=== PATIENT | male | born 1990 | race Caucasian/White ===

== ENCOUNTER 2018-04-10 09:00 | Outpatient (RCR) | payer MEDICARE, SELFPAY ==
--- NOTE | 2018-04-10 09:00 | BH.COMM ---
Communication Note - Communication with Client Communication Note: Met with this patient to complete intial paperwork. No significant changes since pre-admission screening. Denies any suicidal ideations, plan, or intent. Due to weather several group members had to cancel therefore not enough to run groups today. Pt to meet with individual therapist.
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
--- NOTE | 2018-04-10 14:38 | BH.MTP ---
Master Treatment Plan - Patient Information Program Physician:: Darius Oviedo Primary Therapist:: Triston Michel - Psychiatric Diagnoses Psychiatric Diagnoses:: Persistent depressive disorder; generalized anxiety disorder; PTSD; Borderline personality disorder; alcohol abuse Diagnosis Code(s):: F 34.1 - Estimated LOS Estimated LOS (in weeks):: 6 Problem/Goal #1 - Problem/Goal #1 Stated Goal:: Client will reduce depressive symptoms, suicidal thoughts, and anhedonia due to persistent depressive disorder. Description of Barriers: Client acknowledges that his recent move, current job, and lack of social supports contribute to his worsening depressive symptoms. Client recognizes he engages in avoidant behaviors and his negative thoughts reinforce isolation at times. Client recently stopped using marijuana and started drinking in the evenings as a method to manage night terrors and help client sleep. Client acknowledges his drinking is developing into a problem and was receptive to gaining resources to help him deal with this. Client has a history of self-harm and impulsive behaviors. Client shared he has not addressed or worked through his trauma which may impact client's ability to manage symptoms. Lastly, due to client's complex trauma history and long-term negative core beliefs of self, client may struggle with challenging and reframing negative thoughts. Functional Impact: Client is a 27-year-old male who was referred to [facility] by his outpatient therapist due to worsening depression and fleeting suicidal ideation. Client presents with a history of bipolar, PTSD, AMERICO, and Borderline Personality disorder. Client reports his symptoms have become worse over the past several months due to recent move and lack of social supports. Per client's report, he has had multiple previous psychiatric admissions for suicidal ideation and suicide attempts with his most recent hospitalization being two years ago. Client states having chronic suicidal ideation which intensify when client is stressed. Client currently denies any active suicidal ideation, plan, and intent. Client also has a history of self-injurious behaviors of cutting which he reports doing weekly. Client currently endorses lack of motivation, anhedonia, self-loathing, lack of energy, erratic sleep, nightmares, hopelessness, and ruminations. Client reports avoidant behaviors and has been isolating. Client?s symptoms impact his ability to function at his baseline and are impacting his overall quality of life. Goal Relevant Strengths/Supports: Client presents as kind, intelligent, and willing to engage in his mental health treatment. Client has been through several adverse experiences in his life and he demonstrates resilience. Client is caring towards people and shared my friends say I'm easy to talk to. Client shared he loves animals and has three cats that he devotedly cares for. Client reports he has had close relationships in the past and identified his mother as a support. Client's new job has provided client with increased financial support and helped client develop a new skillset. Client enjoys reading, music, and yoga. Client is connected with outpatient counseling and psychiatry which is a protective factor. - Objectives Objective #1 Stated Objective: Client will identify and replace 2-3 negative thinking patterns that reinforce isolation, suicidal ideation, and negative self-talk. Interventions: Through groups and individual therapy, client will be provided with education on cognitive distortions, mistaken beliefs, and identifying and combating negative self-talk. Therapist will assist client recognizing triggers for increased suicidal and depressive thought patterns. Therapist will help client explore connection between thoughts, feelings, and actions and help client reframe depressive thought patterns. Therapist will help client gain awareness of why client has developed negative thoughts and core beliefs of self. Discharge Criteria: Client will have accomplished this goal when client can identify and replace at least 2 negative thinking patterns with more realistic, positive statements. Target Date: 05/22/18 Review Date: 05/10/18 Status: open Objective #2 Stated Objective: Client will increase behavioral activation by engaging in at least one additional activity per week to reduce depressive symptoms as shown by reduced DSM-5 cross-cutting scores for depression. Interventions: Therapist will help client explore social connection opportunities, and as well as activities that promote accomplishment, enjoyment, and closeness. Therapist will provide education on maintenance cycles for depression and help client learn how to break unhealthy maintenance cycles using thought challenging and opposite action. Therapist will help client identify barriers that have prevented from engaging in more activities and create solutions to these barriers. Therapist will help client set SMART goals. Discharge Criteria: Client will have achieved this goal when client can report increased behavioral activation by participating in one extracurricular activity per week and shows reduced DSM-5 cross-cutting scores for depression. Target Date: 05/22/18 Review Date: 05/10/18 Status: open Problem/Goal #2 - Problem/Goal #2 Stated Goal:: Client will reduce overall frequency, intensity, and duration of anxiety while increasing ability to function on a daily basis. Description of Barriers: Client acknowledges that his recent move, current job, and lack of social supports contribute to his worsening depressive symptoms. Client recognizes he engages in avoidant behaviors and his negative thoughts reinforce isolation at times. Client recently stopped using marijuana and started drinking in the evenings as a method to manage night terrors and help client sleep. Client acknowledges his drinking is developing into a problem and was receptive to gaining resources to help him deal with this. Client has a history of self-harm and impulsive behaviors. Client shared he has not addressed or worked through his trauma which may impact client's ability to manage symptoms. Lastly, due to client's complex trauma history and long-term negative core beliefs of self, client may struggle with challenging and reframing negative thoughts. Functional Impact: Client is a 27-year-old male who was referred to [facility] by his outpatient therapist due to worsening depression and fleeting suicidal ideation. Client presents with a history of bipolar, PTSD, AMERICO, and Borderline Personality disorder. Client reports his symptoms have become worse over the past several months due to recent move and lack of social supports. Per client's report, he has had multiple previous psychiatric admissions for suicidal ideation and suicide attempts with his most recent hospitalization being two years ago. Client states having chronic suicidal ideation which intensify when client is stressed. Client currently denies any active suicidal ideation, plan, and intent. Client also has a history of self-injurious behaviors of cutting which he reports doing weekly. Client currently endorses lack of motivation, anhedonia, self-loathing, lack of energy, erratic sleep, nightmares, hopelessness, and ruminations. Client reports avoidant behaviors and has been isolating. Client?s symptoms impact his ability to function at his baseline and are impacting his overall quality of life. Goal Relevant Strengths/Supports: Client presents as kind, intelligent, and willing to engage in his mental health treatment. Client has been through several adverse experiences in his life and he demonstrates resilience. Client is caring towards people and shared my friends say I'm easy to talk to. Client shared he loves animals and has three cats that he devotedly cares for. Client reports he has had close relationships in the past and identified his mother as a support. Client's new job has provided client with increased financial support and helped client develop a new skillset. Client enjoys reading, music, and yoga. Client is connected with outpatient counseling and psychiatry which is a protective factor. - Objectives Objective #1 Stated Objective: Client will identify 2-3 anxiety/PTSD triggers and 2 coping skills to use when feeling anxious to manage anxiety as shown by reduced DSM-5 scores for anxiety. Interventions: Through group and individual sessions, therapist will help client increase awareness of warning signs and triggers as well as cognitive distortions that reinforce anxiety and PTSD symptoms. Therapist will teach client strategies to replace and challenge cognitive distortions. Therapist will utilize grounding, mindfulness, and CBT-based strategies to help client learn how to more effectively manage and cope with triggers and anxiety. Therapist will teach client calming/relaxation skills and help client connect ways to apply skills to daily life Discharge Criteria: Client will have accomplished this goal when client can identify at least 2 triggers and 2 coping skills to manage symptoms. Client's DSM-5 score for anxiety will also have decreased. Target Date: 05/22/18 Review Date: 05/10/18 Status: open Objective #2 Stated Objective: Client will be able to explain 4-5 common stress reactions and symptoms related to trauma. Interventions: Therapist will provide education on trauma and explain impact trauma can have on development. Will help client explore symptoms and helpful coping skills to improve emotional regulation and distress tolerance. Therapist will help client get connected with additional trauma-focused services, should client agree. Discharge Criteria: Client will have met this objective when can identify at least 4 common stress reactions to trauma and consistently applying distress tolerance skills. Target Date: 05/22/18 Review Date: 05/10/18 Status: open Problem/Goal #3 - Problem/Goal #3 Stated Goal:: Client will increase coping skills to more effectively manage impulsiveness and relationships. Description of Barriers: Client acknowledges that his recent move, current job, and lack of social supports contribute to his worsening depressive symptoms. Client recognizes he engages in avoidant behaviors and his negative thoughts reinforce isolation at times. Client recently stopped using marijuana and started drinking in the evenings as a method to manage night terrors and help client sleep. Client acknowledges his drinking is developing into a problem and was receptive to gaining resources to help him deal with this. Client has a history of self-harm and impulsive behaviors. Client shared he has not addressed or worked through his trauma which may impact client's ability to manage symptoms. Lastly, due to client's complex trauma history and long-term negative core beliefs of self, client may struggle with challenging and reframing negative thoughts. Functional Impact: Client is a 27-year-old male who was referred to [facility] by his outpatient therapist due to worsening depression and fleeting suicidal ideation. Client presents with a history of bipolar, PTSD, AMERICO, and Borderline Personality disorder. Client reports his symptoms have become worse over the past several months due to recent move and lack of social supports. Per client's report, he has had multiple previous psychiatric admissions for suicidal ideation and suicide attempts with his most recent hospitalization being two years ago. Client states having chronic suicidal ideation which intensify when client is stressed. Client currently denies any active suicidal ideation, plan, and intent. Client also has a history of self-injurious behaviors of cutting which he reports doing weekly. Client currently endorses lack of motivation, anhedonia, self-loathing, lack of energy, erratic sleep, nightmares, hopelessness, and ruminations. Client reports avoidant behaviors and has been isolating. Client?s symptoms impact his ability to function at his baseline and are impacting his overall quality of life. Goal Relevant Strengths/Supports: Client presents as kind, intelligent, and willing to engage in his mental health treatment. Client has been through several adverse experiences in his life and he demonstrates resilience. Client is caring towards people and shared my friends say I'm easy to talk to. Client shared he loves animals and has three cats that he devotedly cares for. Client reports he has had close relationships in the past and identified his mother as a support. Client's new job has provided client with increased financial support and helped client develop a new skillset. Client enjoys reading, music, and yoga. Client is connected with outpatient counseling and psychiatry which is a protective factor. - Objectives Objective #1 Stated Objective: Client will identify 2 triggers and 2 coping skills to use when client experiences mood dysregulation and has increased urges to self-harm or engage in impulsive behaviors. Interventions: Through individual and group counseling client will be provided with education on healthy coping skills to mood swings, impulse, and crisis behaviors. Therapist will provide information regarding healthy alternatives to find emotion release and prevent self-harming behaviors. Individual therapist will teach client DBT techniques to increase emotional regulation and distress tolerance. Therapist will also engage client to use self-compassion while working to change behaviors. Discharge Criteria: Client will have accomplished this goal when client can identify at least 2 triggers and 2 coping skills to increase mood stability and reduce impulsiveness. Target Date: 05/22/18 Review Date: 05/10/18 Status: open
--- NOTE | 2018-04-11 09:02 | BH.SGPN.GN ---
Behaviors/Verbalizations/Mental Status: []Client alert and oriented, disheveled in appearance. Eye contact fair. Motor activity appropriate. Speech within normal limits. Affect constricted, mood depressed. Thoughts linear and logical, no signs of hallucinations or delusions. Client Response/Progress/Benefit: []Pt responded well to session as shown by pt listening attentively to others and sharing his feelings with group. Pt reported one mental health wins was taking time to exercise, which made him feel accomplished. Pt stated another mental health win was washing two dishes which was his small goal to complete. Pt stated current stressor is continuing to struggle with sleeping. Pt identified emotion for today as: empty. Pt seemed to benefit from support from peers and expressing thoughts and emotions. Progress noted with pt following through with small goals outside treatment environment. Pt to continue IOP to stabilize moods, increase use of healthy coping, and prevent decompensation. Narrative Note: []
--- NOTE | 2018-04-11 10:05 | BH.SGPN.GN ---
Behaviors/Verbalizations/Mental Status: [Client alert and oriented, dress is disheveled as client wearing dirty clothing and appearing unbathed. Eye contact fair to good. Motor activity appropriate. Speech within normal limits, soft tone. Affect constricted, mood depressed/apathetic. Thoughts linear and logical, no signs of hallucinations or delusions.] Client Response/Progress/Benefit: [Client receptive of session, did well in remaining an observant participant, though provided limited input throughout, did well to respond when prompted. Client willing to participate in discussion regarding what may cause a crisis and potential impacts of crisis situations on various aspects of life. Client shared that crisis could stem from legal situations and indicated this has caused personal crisis in the past. Client benefitted from discussion on warning signs for crisis and completing the warning sign identification worksheet. He shared that personal crisis warning signs include increased risk taking, increased spending, and urges to seek adrenaline due to feelings of numbness. Client progress noted in ability provide some input and connect with discussion despite it being his first day in IOP program. Continued IOP recommended to improve coping skill application, decrease depressive sx, and maintain safety.]] Narrative Note: []
--- NOTE | 2018-04-11 11:05 | BH.SGPN.GN ---
Behaviors/Verbalizations/Mental Status: []Client alert and oriented, disheveled appearance. Eye contact poor. Motor activity slowed. Speech soft. Affect flat, mood depressed, apathetic. Thoughts linear, logical, no signs of hallucinations or delusions. Client Response/Progress/Benefit: []Client responded somewhat well to session, quiet, but participating when prompted. Client further processed his personal crisis warning signs and identified his biggest warning signs for not doing well are increased impulsivity, not eating, and feeling disconnected. Client stated his impulsiveness ?is always my biggest problem.? Client listened as the group identified healthy coping skills to manage warning signs. Client selected meditation, yoga, and removing apps from his phone that could lead to impulsive shopping. Client created a crisis kit of visuals that will remind client of the coping skills he identified. Client?s kit included stones to remind client of nature, a clip to remind client to be steadfast, and a blue star for yoga and meditation. Client appeared to benefit from creating a concrete action plan for warning signs and creating a crisis kit. Client?s second day in PHP. Client reports following through with exercising yesterday and doing some dishes which shows progress. Client to continue PHP to prevent decompensation, increase mood stability and reduce impulsive behaviors.
--- NOTE | 2018-04-11 15:29 | BH.MDN_ITS ---
Multi-Disciplinary Note - Note 45-min Individual Time Started:: 12:05 Date: 04/11/18 Purpose of session/treatment goals addressed:: The purpose of this session was to address client's current symptoms, stressors, and barriers. Another goal was to discuss behavioral action and schedule activities that will promote enjoyment and accomplishment. Eye Contact:: Poor Motor Activity:: Slowed Appearance:: Disheveled Speech:: Soft Mood:: Dysthymic, Other - apathetic Affect:: Flat Thoughts:: Other - reporting some difficutly gathering thoughts., No evidence of hallucinations/delusions noted Staff Interventions:: Therapist used active listening and open-ended questions to gather information on client?s symptoms, stressors, and barriers. Therapist assessed risk, substance use, self-harm. Client contracted for safety. Therapist reviewed client?s homework which client completed. Therapist discussed maintenance cycles and introduced behavioral activation. Therapist gave client a list of numerous activities, social events, and motivation techniques and had client identify 10 he was willing to try. Therapist helped client process barriers and apathy. Therapist assisted client in created a plan for today that will promote behavioral activation, accomplishment, and socialization. Therapist gave client homework to reach out to a support and complete at least three pleasurable activities or tasks. Client Response:: Client entered session alert and oriented. Appeared guarded today and reporting feeling apathetic, but willing to meet with therapist. Client shared he did yoga last night and after was able to do some dishes. Terrance kumari stated he almost talked himself out of it because he was feeling tired and had low motivation. Therapist helped client see the positives of engaging in a healthy coping skill despite low motivation. Client stated yoga was a positive experience and somewhat improved his mood. Client appeared to connect with maintenance cycles and was receptive to behavioral activation. Client shared he acknowledges his negative thoughts keep him stuck in a depressive cycle, but he feels more cable to work on increasing routine and socialization at the moment. Client stated one of his biggest barriers is feeling apathetic and bored by things and everyone. Client shared he has not felt accomplished or intellectually stimulated in a long time. Client defined what accomplishment meant for him and client and therapist helped identify goals that could help him feel accomplished. Client created a behavioral activation plan for today. Client identified three enjoyable activities and three tasks he will do today. Client receptive to reaching out to a support and was willing to either spend time with his mother or call a friend. Risks/Concerns:: Client reports having passive suicidal thoughts today no more than usual. Client denied active suicidal ideation, plan, and intent as of 04/11/18. Client reports ability to maintain safety and was receptive to scheduling activities today which demonstrates future orientation. Progress Toward Goals/Plan:: Limited progress to document as it is client's second day in PHP. Client reports completing his goal of practicing yoga last evening which demonstrates motivation and effort in treatment. Client denied self-harm or drinking last night which is positive. Client receptive to working on increasing routine, socialization, and pleasurable experiences before tackling negative thought patterns. Client plans to complete three activities he will enjoy and three tasks he can accomplish tonight for homework. Client reports plan to call his mom and potentially visit her if she is having a good day. Client receptive to therapist's resources and ideas on behavioral activation and increasing social supports. Client to continue PHP to prevent decompensation, reduce depressive symptoms, and improve healthy coping skills. Time Stopped:: 12:45
--- NOTE | 2018-04-12 09:21 | BH.SGPN.GN ---
Behaviors/Verbalizations/Mental Status: [Client eye contact fair to good, casually dressed, motor activity appropriate, speech normal rate and tone limited input, mood dysthymic and anxious, congruent affect, thoughts linear and intact, no evidence of delusions or hallucinations.]] Client Response/Progress/Benefit: [Client receptive of session and providing increased input compared to usual baseline. Client provided some input to discussing reviewing the benefits of setting goals and comparing short and long-term goals. Client identified a benefit to goal setting as gaining perspective in terms of what we need and what we want to work towards. Identified personal barriers to following through with goals as becoming discouraged and giving up when the goal begins to feel overwhelming or unattainable. Client participated in the review of SMART goal setting criteria and provided insight into the various component of SMART goals. Noted that he connected with the need for goals to be relevant for it to be more likely to be achieved. Client seemed to benefit from rehearsing setting short-term SMART goals in the group activity and displayed progress in his ability to connect with the group AEB client laughing and interacting with the group. Continued IOP tx to promote increased use of healthy coping, decrease depression, and maintain safety.]] Narrative Note: []
--- NOTE | 2018-04-12 10:20 | BH.SGPN.GN ---
Behaviors/Verbalizations/Mental Status: [Client eye contact fair to good, casually dressed, motor activity appropriate, speech normal rate and tone, mood euthymic more positive than usual AEB making jokes, congruent affect, thoughts linear and intact, no evidence of delusions or hallucinations.] Client Response/Progress/Benefit: [Client was an active participant in group activity and discussion, providing input throughout. Client created a mental health related SMART goal to accomplish over the weekend which was to clean my house by Monday. Reported he believes that this goal will be beneficial to mental health by decreasing stress and creating a more inviting and relaxing environment. Identified obstacles to obtaining this goal as well as solutions to those obstacles. Noted being overwhelmed by the amount of work could be an obstacle and indicated that breaking it down into pieces would be helpful. Group provided feedback on if this goal was SMART and client receptive of feedback provided. Benefited from group regarding education on developing specific, measurable, achievable, relevant, and time-bound goals. Will continue in IOP to decrease depression and increase coping skills as well as reduce anxiety. ] Narrative Note: []
--- NOTE | 2018-04-12 11:30 | BH.NA ---
Physical Data - Vital Signs Pulse Rate: 86 Respiratory Rate: 16 Blood Pressure: 104/79 - Height/Weight Height: 1.88 m Weight:: 74.389 kg Weight in Pounds: 164.0 lbs Current Medication Compliance - Medication Compliance Do you take your medication as prescribed?: Yes Do you need assistance with taking medication?: No Have you had side effects from medication?: No Nutritional History - Appetite Nutritional Instructions:: If client shows signs of a swallowing problem, weight change of 10 pounds or more in the last month, or is on a diabetic diet, the physician will review and request a dietitian consult, as appropriate. All unintentional weight loss will be referred to the physician for decision on need for dietitian consult. Describe your appetite:: Good Have you noticed a change in your eating habits lately?: No Functional Assessment - Sleep Pattern Describe any problems with sleeping: Reports difficulty falling and staying asleep attributed to rumination, circadian disruptions due to work schedule, and frequent nightmares. - Activities Motor Activity:: Functional Sensory/Communication Assess - Hearing Problems Do you have any hearing problems?: Adequate - Communication Problems Do you have difficulty understanding what people are saying?: No Do you have trouble putting your thoughts into words or expressing what you want to say?: No Do people ever have trouble understanding what you say?: No What is your primary language?: Hebrew Learning Assessment - Learning Barriers Learning Barriers:: Ready to learn Medical Problems/History - Pain Assessment Do you have acute or chronic pain?: No Surgical History - Surgical History Have you had any surgeries? If so, list type and date:: No Substance Abuse - Substance Abuse Please describe substance abuse in the last 30 days:: Tobacco use of 0.5-1 ppd, cigarettes. ETOH use 1-2 drinks daily, liquor. History of marijuana use, no current illicit substance use. Reports excessive caffiene consumption, especially when working. Mental Status Summary - Mental Status Significant Findings/Observations on Appearance and Mood:: Client is A&Ox4, cooperative with interview, makes fair eye contact. Normal activity. Mildly unkepmt. Speech is clear and of normal rate and volume. Seems reserved and is brief with answers. Moderate depression and anhedonia, mild anxiety. Logical associations. Normal process. No symptoms of delusions. Denies hallucinations and HI. He reports intermittent, chronic SI, but denies any today. Steady gait. Remote and recent memory seem intact. Attention and concentration good. Suicide Assessment - Suicidal Ideation Are you currently or have you been suicidal in the past?: Yes Suicidal Intentional Rating Scale (SIRS): Suicidal thoughts (past) Physician Notification: If Active suicidal thoughts/Will not contract for safety is checked, contact physician and document in the Physician Notification section below. Past Psychiatric History - MH Treatment Hx Past Psychiatric Medications:: lithium, depakote, most of the SSRIs ECT Therapy Details:: N/A Age of first mental health symptoms: childhood Describe (age, circumstance, etc) any past hospitalizations: 6 total hospitalizations, 4 of which were due to SA - most recent hospitalization >2 years ago. Fall Risk Assessment - Age Age: Less than 60 - Mental Status Mental Status: Willing & able to ask for assistance when needed - Physical Status Physical Status: No problems - Impairments Impairments: None - Elimination Elimination: Continent AND independent - Gait or Balance Gait or Balance: Walks independently - Hx of Falls History of falls in the past 6 months: No known history - Medications/Substances Psychotropics:: Antidepressants Medications/substances used within the past 24 hours or ordered to administer: 1-2 of the medications/substances listed above - Total Score Total Points:: 1 RN Summary of Impressions - Impressions Recommendations: Include psychiatric and medical issues, treatment planning recommendations, and discharge planning needs. Impressions: Psychiatric Issues: depression, bipolar vs. borderline, anxiety, PTSD Impression: Medical Issues: N/A Impression: General Medical Conditions: N/A Impressions: Treatment Planning Recommendations: Client should be encouraged to reduce ETOH intake, smoking cessation, and caffiene intake reducation. - Level of Care How do the client's current symptoms and functional deficits support need for this level of care?: Chito describes a decline in his mental health over several months. He has a long-standing history of intermittent SI and mood dysregulation. 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 He lives alone with several cats, but endorses overwhelming loneliness. He identifies his mother as a support when she's feeling up to it, and he has a couple friends to reach out to, who he does not like to burden with his problems. He is drug-free, but has been drinking alcohol more recently and has starting self-injury behaviors. Client describes significant sleep disturbances with rumination and nightmares. He also has racing thoughts throughout the day, but has not had any panic attacks in a long time. Given the severity of his symptoms and significant decompensation, along with his history of SA, PHP will promote gains and provide social supports while preventing further decompensation.
[2018-04-12 14:24] VITALS: BP 104/79; PULSE 86; RESP 16
--- NOTE | 2018-04-13 11:25 | BH.SGPN.GN ---
Behaviors/Verbalizations/Mental Status: [Client alert and oriented, casually dressed and appearing to put more effort into attire, appropriately groomed. Eye contact fair to good. Motor activity appropriate. Speech soft and limited. Affect constricted, mood depressed and anxious. Thoughts linear, logical, no signs of hallucinations or delusions.] Client Response/Progress/Benefit: [Client receptive of session and maintained engaged in an observatory role. Client continues to appear anxious in social settings and provided limited input, though was nodding throughout. Did well to challenge himself to provide some input during activity and actively listening throughout discussion regarding communication and communication barriers. Client benefitted from the review of DBT therapy DEAR MAN technique for improving communication and supportive group environment. Client appears to be progressing in his ability to connect with materials discussed and remains consistent in his motivation to improve depressive sx AEB regular group attendance. Client to continue IOP to maintain safety and decrease depression/anxiety.] Narrative Note: []
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
--- NOTE | 2018-04-13 13:03 | BH.MDN ---
Multi-Disciplinary Note - Note 45-min Individual Time Started:: 09:15 Date: 04/13/18 Purpose of session/treatment goals addressed:: The purpose of this session was to address current symptoms, assess risk, and identify a plan for the weekend. Other topics included medication concerns, strengths, and goal setting. Eye Contact:: Good Appearance:: Neat - clothing looked clean. Speech:: Soft Mood:: Anxious, Dysthymic Affect:: Flat Thoughts:: Other - reporting difficultly focusing., No evidence of hallucinations/delusions noted Staff Interventions:: Therapist used active listening and open-ended questions to gather information on client?s symptoms, stressors, and medication side effects. Therapist assessed risk, substance use, self-harm. Client contracted for safety. Therapist reviewed client?s homework which client partially completed and praised client for engaging with a support and cleaning at home. Therapist provided emotional support and helped client process current barriers, emotions, and negative thoughts. Therapist reminded client to focus on daily goals and making small changes. Therapist assisted client in setting goals for the weekend that will promote accomplishment and positive socialization. Therapist and client came up with a goal for client to reach out to one support, clean his dishes, and go to the library this weekend. Therapist used strengths perspective to encourage and empower client. Client Response:: Client responded somewhat well to session, appeared distracted and reporting difficulty concentrating due to medication. Client verbalized his concerns and therapist reassured client he will be meeting with IOP psychiatrist today. Client shared he has been having a hard time motivating himself stating, I want to do things, but I can't move. Client reported he was able to get out of the house yesterday and go grocery shopping with his mother. Client stated he recognizes he can benefit from being more social, but his lack of motivation and social anxiety is too much right now. Client and therapist discussed focusing on one goal at a time, one day at a time. Client receptive to setting a goal of cleaning the dishes and going to the library. Client and therapist came up with strategies to overcome barriers that would keep client from accomplishing his goal. Client open to going to the library as it involves being social, but it does not require client to engage in outgoing behaviors. Client stated telling his mother about his goals would increase the likelihood that he will accomplish them. Client wrote a note to himself of how he will feel after accomplishing these goals. Client stated having a clean kitchen will reduce his anxiety. 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 Risks/Concerns:: Client reports chronic suicidal thoughts or fantasies. Client denies active suicidal ideation, intent, or plan as of 04/13/18. Client reports ability to maintain safety over the weekend. Client agreeable to call crisis or go to the ER should he feel unsafe. Client reports plan to spend time with his mother and go to the library this weekend which demonstrates future orientation. Progress Toward Goals/Plan:: Limited progress to document as client continues to report ongoing depressive symptoms and expressed medication side effects. Client shared because of his medication he is having even more difficulty concentrating and following through with goals due to fatigue. Client to meet with program psychiatrist today and therapist will verbalize client?s concerns. Client drank last night to help with sleep, but he has not self-harmed all week which is a positive. Client spent time with his mother yesterday and went grocery shopping which shows progress. Client agreeable that he can benefit from working on increasing behavioral activation to promote ACEs (accomplishment, closeness, and enjoyment) at this time. Client receptive to working on distorted thought patterns after his mood slightly improves as he does not feel mentally ready to combat mistaken, negative core beliefs at this time. Client to continue PHP to prevent decompensation, reduce depressive symptoms, and improve healthy coping skills and supports. Client to work on weekend goal. Time Stopped:: 09:58
--- NOTE | 2018-04-13 13:40 | BH.DR.ITP ---
Initial Treatment Plan - Patient Information Visit Information: ADMISSION DATE: 04/10/18 EXPECTED LOS: 4-6 weeks Diagnoses:: persistent depressive disorder - Problems/Symptoms Problem #1:: Depression Symptom:: low mood, anhedonia, suicidality, amotivation Problem #2:: anxiety Symptom:: worry, problems dealing with stress Problem #3:: Borderline personality disorder Symptom:: Fears of abandonment, mood swings, relationship problems
--- NOTE | 2018-04-16 14:44 | BH.COMM ---
Communication Note - Communication with Client Communication Note: Therapist attempted to call client's outpatient therapist, Iliana Hanson, at [facility] for continuity of care purposes. Therapist left a message and will continue to follow up with Iliana.
--- NOTE | 2018-04-17 09:11 | BH.SGPN.GN ---
Behaviors/Verbalizations/Mental Status: [Eye contact is good. Motor activity WNL. Appearance casual client wearing a cut-off shirt as opposed to usual long sleeves. Speech Appropriate rate and tone. Mood dysthymic and expressed as ?numb?. Affect is congruent. Thoughts linear and logical. No evidence of delusions or hallucinations. Reviewed daily check in sheet and no reports of suicidal ideations or intent] Client Response/Progress/Benefit: [Client receptive of session, providing input when prompted and more openly engaged than previous groups. Indicated current mood as ?numb? which client reflected continues to be his baseline. Client did well to identify various things that help him to become more grounded such as listening to music. Went on to indicate current mental health positives challenging himself to challenge self-doubt and accomplish a work-related task as well as completing personal goal of doing the dishes. Client discussed that this was a success for him as he has been struggling to accomplish small tasks and is proud to be able to say he ?actually followed through with doing it?. Client shared current stressors as ongoing issues with sleep due to experiencing night terrors and struggling to find an effective healthy solution on an immediate level. Receptive of discussing the importance of working through what may be triggering ongoing intrusive trauma related dreams; however, reports skepticism of ability to do so without aide of substance. Client progress in his ability to more actively engage in group and provide feedback. Client recommended continued IOP to improve health coping skills, decrease depression, as well as increase support network. ] Narrative Note: []
--- NOTE | 2018-04-17 10:12 | BH.SGPN.GN ---
Behaviors/Verbalizations/Mental Status: []Client alert and oriented, disheveled appearance, hygiene poor. Eye contact good. Motor activity appropriate. Speech within normal limits. Affect brighter than previous sessions-smiling and laughing with peers, mood calm. Thoughts linear, logical, no signs of hallucinations or delusions. Client Response/Progress/Benefit: []Client responded well to session, more vocal and engaged than previous sessions. Client appeared to connect with the quote sharing ?you?re constantly driving ghosts away? if one keeps re-reading their past. Client stated it is important to make changes in life to improve one?s mental health because ?it allows you to actually live and be present.? Client reported barriers such as previous experiences, lack of motivation, and perspective keep people from making positive change. Client identified three small changes he would like to make to improve his mental health. Client?s changes were to reduce impulsivity, create healthier habits, and have a housekeeping cleaner environment at home. Client identified barriers keeping him from making those changes to be: social anxiety, lack of motivation, and lack of social support. Client appeared to benefit from gaining awareness of changes that would improve his mental health and the barriers keeping client stuck. Progress noted as client appears more comfortable in group and has increased communication with peers. Client?s affect also has improved from last week. Client to continue PHP to prevent decompensation, maintain safety, and increase emotional regulation.
--- NOTE | 2018-04-17 11:14 | BH.SGPN.GN ---
Behaviors/Verbalizations/Mental Status: []Client alert and oriented, casual dress, hygiene fair. Eye contact good. Motor activity appropriate. Speech normal range for tone and frequency. Affect constricted, mood dysthymic. Thoughts linear, logical, no signs of hallucinations or delusions. Client Response/Progress/Benefit: []Pt was an engaged participant, did well to participate in group activity and provided insight and input to discussion at times. Worked with group members to identify connections between activity and strategies for overcoming barriers to making changes. Identified a specific change he would like to make for his mental health, barriers to making that change, and a SMART goal to reach that change. Shared he would like to focus on having a rope cleaner home environment so he doesn't get overwhelmed by the mess. Pt stated his SMART goal is to focus on one area in his house at least once a day. Benefited from group as he was able to identify strategies to overcome barriers to change and create a plan for implementing one small change promoting personal growth. Pt to continue IOP level of care to decrease depressive symptoms, challenge distorted thoughts and prevent decompensation. Narrative Note: []
--- NOTE | 2018-04-17 14:26 | BH.MDN ---
Multi-Disciplinary Note - Note 30-min Individual Time Started:: 12:05 Date: 04/17/18 Purpose of session/treatment goals addressed:: The purpose of this session was to review homework and address current stressors and symptoms. Another goal was to set goals for the week to promote behavioral activation and mood stability. Other topics included: resources, mindfulness/grounding, and psychoeducation. Eye Contact:: Good Motor Activity:: Appropriate Appearance:: Disheveled Speech:: Appropriate Mood:: Euthymic, Anxious Affect:: Congruent - Client laughing and smiling, but shifted approprately based on the content being discussed. Thoughts:: Linear, Logical, No evidence of hallucinations/delusions noted Staff Interventions:: Therapist used active listening and open-ended questions to explore client?s current stressors and symptoms. Therapist praised client for accomplishing part of his weekend goal and assisted client in setting a daily and weekly goal for this week. Therapist assessed risk, addressed medication changes, and used strengths perspective to empower client as he has not self-harmed since starting [facility]. Therapist taught client mindfulness and grounding techniques to help client feel present and manage anxiety and PTSD. Therapist provided psychoeducation on trauma and explained how trauma-focused therapy could benefit client in his mental health recovery. Client gave client resources on topics that interest client. Therapist gave client homework to work on his goal of cleaning his bed and doing yoga today. Client Response:: Client responded well to session, smiling and reporting improved mood. Client contributes his improved mood to stopping his medication and feeling more comfortable in group. Client was prescribed a different medication from [facility] psychiatrist on Monday04/13/18, but client has not started taking it yet. Client receptive to therapist following up with psychiatrist. Client reported he accomplished part of his goal this weekend which was cleaning his dishes. Client stated he felt good after accomplishing this and now he feels more motivated to clean his bedroom. Client reported he has not slept in his room for a while because he is afraid of not being close to the door. Client stated he is improving with thinking rationally and tells himself you're safe, no one is going to come in and stab you. Client acknowledges his fear stems from his PTSD and unresolved trauma. Client and therapist discussed and practiced mindfulness and grounding techniques to help client manage his symptoms and feel present. Client stated petting his cats, using self-talk, and breathing can be effective. Client also receptive to the five-senses, mindfulness cues, and mindful cooking. Client and therapist discussed trauma-focused therapy and how this may benefit client in his mental health recovery. Client stated he is not ready to deal with his trauma, but he was open to the idea down the road. Client set a goal to clean his bed today and to complete 30 minutes of yoga. Client shared this will help him feel present and accomplished. Client has expressed interest in podcasts and cooking. Therapist provided client with resources for these. Risks/Concerns:: Client reports his suicidal thoughts have decreased and he denies active suicidal ideation, plan, and intent as of 04/17/18. Client reports improved mood and was future oriented throughout session as shown by client setting goals for the week. Client stated he feels comfortable and present in group which is a protective factor. Client reported he has not self-harmed since starting PHP which demonstrates progress. Client reports ability to maintain safety. Progress Toward Goals/Plan:: Client demonstrating progress towards treatment goals as today he reports improved mood and success in accomplishing part of his weekend goal. Client reported his suicidal thoughts have reduced and that he has not self-harmed since starting PHP. Client stated he feels more comfortable in group which has been helpful. Although client's mood and motivation have slightly improved, he continues to report not yet being ready to address negative thoughts and core beliefs. Client also continues to report difficulty sleeping due to night terrors, anhedonia, social anxiety, and isolation. Client receptive to discussion of trauma-focused therapy when he is ready. Client to continue PHP to prevent decompensation, maintain safety, and promote consistent mood stability. Therapist to follow up with program psychiatrist regarding medication changes. Time Stopped:: 12:30
--- NOTE | 2018-04-17 14:52 | BH.MDN_ITS ---
Multi-Disciplinary Note - Note 30-min Individual Time Started:: 12:05 Date: 04/17/18 Purpose of session/treatment goals addressed:: The purpose of this session was to review homework and address current stressors and symptoms. Another goal was to set goals for the week to promote behavioral activation and mood stability. Other topics included: resources, mindfulness/grounding, and psychoeducation. Eye Contact:: Good Motor Activity:: Appropriate Appearance:: Disheveled Speech:: Appropriate Mood:: Euthymic, Anxious Affect:: Congruent - Client laughing and smiling, but shifted approprately based on the content being discussed. Thoughts:: Linear, Logical, No evidence of hallucinations/delusions noted Staff Interventions:: Therapist used active listening and open-ended questions to explore client?s current stressors and symptoms. Therapist praised client for accomplishing part of his weekend goal and assisted client in setting a daily and weekly goal for this week. Therapist assessed risk, addressed medication changes, and used strengths perspective to empower client as he has not self- harmed since starting [facility]. Therapist taught client mindfulness and grounding techniques to help client feel present and manage anxiety and PTSD. Therapist p rovided psychoeducation on trauma and explained how trauma-focused therapy could benefit client in his mental health recovery. Client gave client resources on topics that interest client. Therapist gave client homework to work on his goal of cleaning his bed and doing yoga today. Client Response:: Client responded well to session, smiling and reporting improved mood. Client contributes his improved mood to stopping his medication and feeling more comfortable in group. Client was prescribed a different medication from [facility] psychiatrist on Monday04/13/18, but client has not started taking it yet. Client receptive to therapist following up with psychiatrist. Client reported he accomplished part of his goal this weekend which was cleaning his dishes. Client stated he felt good after accomplishing this and now he feels more motivated to clean his bedroom. Client reported he has not slept in his room for a while because he is afraid of not being close to the door. Client stated he is improving with thinking rationally and tells himself you're safe, no one is going to come in and stab you. Client acknowledges his fear stems from his PTSD and unresolved trauma. Client and therapist discussed and practiced mindfulness and grounding techniques to help client manage his symptoms and feel present. Client stated petting his cats, using self-talk, and breathing can be effective. Client also receptive to the five-senses, mindfulness cues, and mindful cooking. Client and therapist discussed trauma- focused therapy and how this may benefit client in his mental health recovery. Client stated he is not ready to deal with his trauma, but he was open to the idea down the road. Client set a goal to clean his bed today and to complete 30 minutes of yoga. Client shared this will help him feel present and accomplished. Client has expressed interest in podcasts and cooking. Therapist provided client with resources for these. Risks/Concerns:: Client reports his suicidal thoughts have decreased and he denies active suicidal ideation, plan, and intent as of 04/17/18. Client reports improved mood and was future oriented throughout session as shown by client setting goals for the week. Client stated he feels comfortable and present in group which is a protective factor. Client reported he has not self-harmed since starting PHP which demonstrates progress. Client reports ability to maintain safety. Progress Toward Goals/Plan:: Client demonstrating progress towards treatment goals as today he reports improved mood and success in accomplishing part of his weekend goal. Client reported his suicidal thoughts have reduced and that he has not self-harmed since starting PHP. Client stated he feels more comfortable in group which has been helpful. Although client's mood and motivation have slightly improved, he continues to report not yet being ready to address negative thoughts and core beliefs. Client also continues to report difficulty sleeping due to night terrors, anhedonia, social anxiety, and isolation. Client receptive to discussion of trauma-focused therapy when he is ready. Client to continue PHP to prevent decompensation, maintain safety, and promote consistent mood stability. Therapist to follow up with program psychiatrist regarding medication changes. Time Stopped:: 12:30
--- NOTE | 2018-04-17 15:48 | BH.COMM ---
Communication Note - Communication with Client Communication Note: Therapist spoke with client's outpatient therapist, Iliana Hanson, regarding client updates, plan of care, symptoms, and recent progress. Therapist to continue to follow up with Iliana for continuity of care purposes.
--- NOTE | 2018-04-18 08:44 | BH.COMM ---
Communication Note - Communication with Client Communication Note: Client called to cancel scheduled PHP session today due to client helping his mother with legal issues. Therapist encouraged self-care today. Client reports plan to attend group tomorrow 04/19/18.
--- NOTE | 2018-04-19 09:10 | BH.SGPN.GN ---
Behaviors/Verbalizations/Mental Status: [Eye contact is fair. Motor activity WNL. Appearance casual. Speech appropriate rate and soft tone. Mood depressed. Affect is constricted. Thoughts linear and logical, appearing somewhat preoccupied by outside stressors AEB client limited input and reports of additional stressors. No evidence of delusions or hallucinations. Reviewed daily check in sheet and no reports of suicidal ideations or intent] Client Response/Progress/Benefit: [Client receptive of session, providing limited input to the group due to decreased mood and appearing distracted by own thoughts; however, client did well to respond to prompts and provide some insight into current mood and potential skills he may use to decrease depression/anxiety on this date. Reports his current emotion is ?hollow? and did not further elaborate as to what is impacting mood; but did well to identify areas of progress. This is evidenced in client report that biggest mental health win was refraining from self-harming via cutting on previous date. Client shared he was able to distract himself by making soup and ?not thinking about it?. Client shared that he would like to sleep today but is unable to which is causing some stress. Did well to identify that using grounding techniques to remain in present moment would be beneficial for preventing decompensation. Client benefitted from support and structure of group environment. Recommended continued IOP tx to decrease depression, improve healthy coping and distress tolerance, as well as maintain safety. ] Narrative Note: []
--- NOTE | 2018-04-19 10:15 | BH.SGPN.GN ---
Behaviors/Verbalizations/Mental Status: []Client alert and oriented, casually dressed. Client less verbally engaged compared to Monday's session. Eye contact good. Motor activity appropriate. Speech within normal limits, soft. Affect flat, mood dysthymic. Thoughts linear, logical, no signs of hallucinations or delusions Client Response/Progress/Benefit: []Client responded somewhat well to session, quiet, but participating in activity. Client appeared to connect with famous ?failures? and shared if these famous people would have given up after their failures, the world would be a different place. Client reported, ?we would probably be today without [facility].? Client nodded that that failure can lead to negative thinking, disappointment, and anxiety. Client able to recognize that fear of failure can have negative impacts on one?s mental health as it can lead to people not trying and feeling stuck. Client engaged in the activity and provided verbal input. Client?s affect improved slightly during the activity as well. Client appeared to benefit from increasing awareness of how fear of failure can impact mental health progress. Progress noted as client reported he did not self-harm after a stressful day yesterday. However, client continues to struggle with emotional dysregulation, depressed mood, and lack of social supports. Client to continue PHP to prevent decompensation and increase mood stability.
--- NOTE | 2018-04-19 11:25 | BH.SGPN.GN ---
Behaviors/Verbalizations/Mental Status: [] Eye contact is good. Motor activity is appropriate. Appearance is disheveled. Speech is Appropriate. Mood is depressed. Affect is flat. Thoughts are linear and logical. No evidence of psychosis. Client Response/Progress/Benefit: [] Pt participated minimally in group activity and discussion. Was attentive when group was identifying skills and strategies that helped reduce fear of failure during group activity however again did not contribute. Completed worksheet and answered questions which included;I would like to change my definition of failure by viewing it as. . ., Fear of failure impacted me by ..., Past failures have taught me ..., Fear of failing is currently holding me back from ...?, and Things I can say or do to help me overcome fear of failing .... however choose not to share with the group. Attentive however guarded and distant during the group. Benefited from group as pt was able to recognize how fear of failure has impacted his life as well as some strategies to combat fear of failure. Will continue in IOP to prevent decompensation, increase coping skills, stabilize mood, and maintain safety. Narrative Note: []
--- OUTSIDE RECORDS SUMMARY | 2018-06-12 11:31 | XMS RPT_ITS ---
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 by: Anna Riley - Fully Assessed Reason for Visit: std test [Other] Primary Visit Diagnosis:Fatigue, unspecified type [R53.83] Other Visit Diagnosis:Screen for STD (sexually transmitted disease) [Z11.3] Order(s):SYPHILIS IGG WITH CONF [SQSYPHGX] Order #: [id number] FUTURE HCV QUANT RNA BY PCR [SQHCQPCR] Order #: [id number] FUTURE HIV 1,2 COMBO (AG/AB) [SQHIV12] Order #: [id number] FUTURE CBC [SQCBC] Order #: [id number] FUTURE COMP METABOLIC PANEL [SQCMP] Order #: [id number] FUTURE TSH BLD [SQTSH] Order #: [id number] FUTURE Prescriptions as of 01/25/2018 Sig: B-12 DOTS ORAL Take 1 tablet by mouth once d* Problem List As Of Date 01/25/2018 Noted Resolved Anxiety [F41.9] Adjustment disorder with mixed anxiety and depr*INVALID FOR* Bipolar I disorder, most recent episode depress*INVALID FOR* Medications Discontinued During This Encounter buPROPion XL (WELLBUTRIN XL) 150 mg * 01/25/2018 Class: Historical Med Route: ORAL Sig: Take 150 mg by mouth once daily. Disc: Discontinued by Patient lamoTRIgine (LAMICTAL) 100 mg tablet 01/25/2018 Class: Historical Med Route: ORAL Sig: Take 100 mg by mouth once daily. Dr Talbert-unsure of dosage Disc: Discontinued by Patient Encounter Status:Closed by ANNA RILEY PA-C on 01/25/18 XR WRIST 3+ VIEWS Observed: 11/23/2017 Status: F Source: LISA LOGAN 3:20 PM [facility] REPOSITORY Exam Date/Time: 11/23/2017 15:28 EDT Reason for Exam: rt wrist pain Report STUDY: XR Wrist 3+ Views Right; 11/23/2017 3:28 pm INDICATION: rt wrist pain. COMPARISON: None. ACCESSION NUMBER(S): [id number] ORDERING CLINICIAN: Alexandr Baker FINDINGS: No fracture or dislocation. IMPRESSION: No acute osseous injury of the right wrist. FINAL REPORT Dictated: 11/23/2017 8:05 pm Eddie Park MD Signed (Electronic Signature): 11/23/2017 8:05 pm Signed by: Eddie Park MD Technologist: HERBERTR ALLERGIES ALLERGIES DATE TYPE / CODE NAME / CODE REACTION SEVERITY SOURCE 04/12/2018 Drug No Known Unknown [facility] Allergy/416 Allergies/Y01516 Hospital 389217(SNOM 0388(RXNORM) Repository ED CT) Drug/717515 No Known [place] 003(SNOMED Allergies Formerly [facility] CT) System Repository Drug NO KNOWN [facility] Class/70328 ALLERGIES [place] 1003(SNOMED Repository CT) ENCOUNTERS ENCOUNTERS ADMIT/DISCHARGE ACCOUNT NUMBER ADMITTING ENCOUNTER LOCATION SOURCE CLASS 04/10/2018 [id number] [facility] ding:[facility] Repository 02/05/2018/02/07/20 [id number] Ambulatory [address] Repository 01/25/2018/01/26/20 [id number] Ambulatory [address] Repository 01/25/2018/01/27/20 [id number] Ambulatory [address] Repository 12/06/2017/12/07/19 [id number] [facility] Druze Druze [address] [facility] ding:[facility] Repository 12/06/[id number] [facility] Repository 11/23/2017/11/24/19 [id number] [facility] Druze Druze [address] [facility] ding:[facility] Repository 11/23/2017 [id number] [facility] [address] [facility] Repository 10/27/2017/10/31/19 [id number] Ambulatory [address] Repository PAYERS PAYERS ENCOUNTER GUARANTOR PAYER SUBSCRIBER SOURCE 04/10/2018 DAVID A Primary DAVID Galaviz MAPMIRIAN Insurance:SELENE ELLIOTT: [place] SENIOR [id number] Hospital [address]Vaj: [phone] ADVANTAPolicy Number: Repository [phone] (HP) [id number] Date:6130-28-27[id number] [place] [address]RF: 04/10/2018 Secondary NOT GIVENUNK Lea Insurance:SELF PAY [facility]: Effective Repository Date:2018-04-10 12/06/2017 DAVID A Primary DAVID MURODOB: [facility]: Formerly [facility] E y Number: Effective [id number] System [facility] [address] Date:2017-11-28 [facility] Repository [address], [id number] [address] Name:CD:[id number] [address]Qyi: [id number], [place] [address]Fet: [id number]: [phone] ([phone] (HP) (WP) 12/06/2017 Secondary DAVID Ross Insurance:MedicaidPol [facility] icy Number: Effective [id number] System Date:2017-11-28 [facility] Repository [id number] [address], Name:CD:[id number] [place] [address] [address]Uhq: [place], [place] [id number]: [phone] (HP) [phone] (WP) 12/06/2017 DAVID BHASKARDOB: Primary DAVID MIKEGLYNNB: [place] E [facility] [id number] [address] y Number: E [facility] Repository [address], [id number] [address] [id number]: Date:Plan Name:Health ID [id number]: (SP) (HP) 12/06/2017 Secondary DAVID TIM: [place] Insurance:[facility], [place] [id number] [facility] icy Number: E [facility] Repository [id number] [address], Date:Plan ID [id number]: Name:[facility] [address]) [phone]: 11/23/2017 DAVID A Primary DAVID Ross NEELYDOB: [facility] E y Number: Effective [id number] System [facility] [address] APT Date:2017-11-23 [facility] Repository [address], [id number] [address] Name:CD:[id number] WEST HOSPITAL [address]Ktw: [id number], [place] [address]Xyo: [id number]: [phone] ([phone] (HP) (WP) 11/23/2017 Secondary DAVID Ross Insurance:MedicaidPol NEELYDOB: [facility]ly [facility] icy Number: Effective [id number] System Date:2017-11-23 [facility] Repository [id number] [address], Name:CD:[id number] E [address] [address]Uue: [place], [place] [id number]: [phone] (HP) [phone] (WP) 11/23/2017 DAVID BHASKARDOB: Primary BEVIER BHASKARB: [place] E Insurance:[facility] [id number] [address] y Number: E [facility] Repository [address], [id number] [address] [id number]: Date:Plan Name:Health ID [id number]: (HP) (HP) 11/23/2017 Secondary DAVID TIM: [place] Insurance:[facility]icaid[facility], [place] [id number] [facility] icy Number: E [facility] Repository [id number] [address], Date:Plan [place] [id number]: Name:[facility] [address], [place] () [address]QM:
== END 2018-04-19 23:59 ==
LOC: BHPHP 09:00
PROVIDERS: Referring Provider Psychiatry & Neurology Psychiatry; Visit Provider Psychiatry & Neurology Psychiatry
DX: F32.89 Other specified depressive episodes (principal); F43.10 Post-traumatic stress disorder, unspecified; F41.1 Generalized anxiety disorder; G47.00 Insomnia, unspecified; F10.20 Alcohol dependence, uncomplicated; F60.3 Borderline personality disorder; F17.210 Nicotine dependence, cigarettes, uncomplicated
CPT/HCPCS: H0035; 90832; 90834; 90853; G0410

== ENCOUNTER 2018-04-20 09:00 | Outpatient (RCR) | payer MEDICARE, SELFPAY ==
[2018-04-20 01:51] VITALS: BP 104/79; PULSE 86; RESP 16
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
--- NOTE | 2018-04-20 10:05 | BH.SGPN.GN ---
Behaviors/Verbalizations/Mental Status: [] Eye contact is good. Motor activity is appropriate. Appearance is disheveled. Speech is Appropriate. Mood is depressed. Affect is flat. Thoughts are linear and logical. No evidence of psychosis. Client Response/Progress/Benefit: [] Pt was an active participant in group activity and discussion. Pt nadine a picture depicting current reality and shared it with the group. In pt's current reality he nadine himself as just an observer, feeling trapped on the inside and watching and looking our at others. Reports feeling numb and overwhelmed. Simply watching others. Pt then nadine a picture depicting desired reality which is him in peace, feeling calm, and participating in life. Identified barriers which are keeping from desired reality are self-destructive behaviors, self-sabotage, internal struggles, and previous life experiences. Benefited from group with self-reflect of current status and desired status as well as the barriers keeping her from her mental health wellness. Will continue in PHP to maintain safety and prevent further decompensation. Narrative Note: []
--- NOTE | 2018-04-20 12:19 | PN_ITS ---
Progress Note Chief Complaint: The patient is a 27-year old male who is an active participant in the partial hospitalization program at [facility]. He has a history of chronic depression, anxiety, PTSD symptoms, and features of borderline personality disorder. He is chronically suicidal. He also has a history of alcohol abuse. History of Present Illness/Interim History: The patient said that his depression continues. He has been stressed out lately because his brother is facing several felony charges after getting into a fight with his girlfriend. The patient is very worried about his brother, hopes he does not have to go to longterm. He said that he is still depressed every day. 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 He has stopped trying Vortioxetine, and said that his mind is clearer. Feels that he can drive more safely now. Denies any recent suicidal thoughts. Still is drinking, but said that he is cut back on his drinking. Does not yet started the Latuda. Wants to wait until he has a day off. I talk with him about the possibility of ECT treatment for treatment resistant depression. Explained the process to him. Does appear to have some interest. I provided supportive therapy. No report of PTSD symptoms. Current Psychiatric Medications: None Review of Symptoms: Psychiatry: Ongoing depression and anxiety as per HPI. He is chronically suicidal, but no current intent. There is no psychosis. He is cognitively intact. Constitutional: He is of thin build and his weight has been steady. His energy level is low. Mental Status Examination: The patient presents as a quiet, dysphoric male who is casually dressed and appropriately groomed. He wears a ponytail and glasses. Thoughts are logical and coherent. He reported ongoing symptoms of depression and anxiety. He is chronically suicidal but there is no current intent. He is not psychotic. He is cognitively intact. Elfrida I: [] Persistent depressive disorder, generalized anxiety disorder, PTSD, insomnia, alcohol abuse Elfrida II: Borderline personality disorder Elfrida III: Nicotine dependence Plan: The patient will soon be starting Latuda for depression. He will be considering the possibility of ECT treatments. He will continue in the partial hospitalization program. During the session I provided 16 minutes of supportive and educational therapy. I will see him again in follow-up.
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
--- NOTE | 2018-04-20 14:22 | BH.COMM ---
Communication Note - Communication with Client Communication Note: Therapist informed behavioral health psychiatrist that client stopped his previous medication, as agreed between psychiatrist and client, but that client did not start taking his newly prescribed Latuda.
--- NOTE | 2018-04-24 09:05 | BH.SGPN.GN ---
Behaviors/Verbalizations/Mental Status: []Client alert and oriented, casual dress, hygiene fair. Eye contact good. Motor activity restless-client was startled by someone entering the room. Speech within normal limits. Affect incongruent as client was smiling but reporting depressive symptoms, mood anxious, depressed. Thoughts linear, logical, no signs of hallucinations or delusions. Reviewed client?s symptom tracker, client indicated 3 out of 5 for thoughts of suicide. Client denied suicide plan, and intent as of 04/24/18. Therapist to follow up with client after group. Client Response/Progress/Benefit: []Client responded somewhat well to session, client appeared agitated, but was able to engage in active listening. Client reports today he feels ?too tired to feel anything? as client reports poor sleep over the weekend. Client declined to elaborate on his current mood state and stressors other than saying ?my weekend sucked.? Client reported his mental health positives include ?I?m still here? and attempting to meet up with an old friend over the weekend. Client shared knowing he was coming to PHP and spending time with his cats helped client make it through the weekend. Client receptive to supportive feedback from peers, but quick to finish his check in as client shared ?alright enough about me.? Client appeared to benefit from verbalizing some of his stressors and challenging his perspective to identify positives. Progress noted as client did not engage in self-harm behaviors over the weekend, but he continues to endorse high anxiety, negative thinking, and depressive symptoms. Client also continues to struggle with processing his emotions and completing self-care. Client to continue PHP to prevent decompensation, increase emotional regulation, and promote mood stability.
--- NOTE | 2018-04-24 15:05 | BH.MDN_ITS ---
Multi-Disciplinary Note - Note 45-min Individual Time Started:: 10:30 Date: 04/24/18 Purpose of session/treatment goals addressed:: The purpose of this session was to address client's current mood state, assess risk, and practice emotional regulation skills to help client reduce intensity of symptoms. Eye Contact:: Fair Motor Activity:: Restless - AEB fidgeting with his hair tie and adjusting in his seat. Client's motor activity became calm and more appropriate by the end of session. Appearance:: Casual Speech:: Rapid Mood:: Anxious, Dysthymic, Other - agitated Affect:: Congruent - tearful Thoughts:: Racing, No evidence of hallucinations/delusions noted Staff Interventions:: Therapist used active listening and elicitation to gather information on client's mood state, stressors, and symptoms. Therapist assessed risk and lethality. Therapist used grounding techniques to help feel present and reduce anxiety. Therapist led client in a breathing and progressive muscle relaxation technique. Therapist provided psychoeducation and gently challenged client's distorted thought patterns that were reinforcing anxiety and depression. Therapist provided client with resources for emotional regulation and crisis. Therapist to follow up with client after group to reevaluate symptoms. Client Response:: Client entered session observable agitated, anxious, and emotional labile. Client was tearful and shared his lack of eating and sleeping is the reason for his emotional dysregulation. Client, at first, was hesitant to stay in session and process symptoms, but he was receptive to emotional support. Client shared triggers such as recent news about his brother, things not working out with his friend, and an incident in group are contributing to his mood as well. Client reported I just don't feel here, it's hard for me to relax. Client responded well to grounding techniques and engaged in deep breathing, 5- senses, and progressive muscle relaxation. Client was observably less anxious after engaging in grounding strategies as shown by client's change in motor activity and speech. Client reported he felt bad for having no filter in group. Through further exploration it was discovered client was experiencing distorted thoughts that were reinforcing his social anxiety. Client receptive to psychoeducation about distorted thoughts and the CBT triangle. Client able to reframe his negative thought with assistance. Client engaged in another round of progressive muscle relaxation and deep breathing and after client reported he felt calm enough to return to group after he takes a smoke break. Risks/Concerns:: Client continues to endorse chronic suicidal ideation, but he denied active suicidal ideation, plan, and intent as of 04/24/18. Client reported I don't feel like I'm a danger or anything. Client reported he has barely slept and eaten which is contributing to client's heightened anxiety, negative thinking, and current symptoms. Client reports ability to maintain safety and dr steinberg home. Client is not working today which is a protective factor as client will have the opportunity to rest. Client denies urges to self-harm. Client willing to engage in grounding techniques and return to group. Future oriented as client reports plan to eat and go for a hike today before sleeping. Client was also hopeful about doing ECT. Progress Toward Goals/Plan:: Progress variable as client has made some progress towards treatment goals, but he appears to be regressing today. Client reports poor sleep, variable appetite, depressed mood, anxiety, and hypervigilance. Client has shown progress in not engaging in self-harming behaviors, as per client's report, he has not cut since starting PHP. Client also attempted to reach out to a support this weekend and was able to regulate emotions during session with assistance from therapist. Client contracted for safety and was receptive to following up with therapist after group. Client reports interest in ECT and was receptive to therapist communicating this with treatment team. Client reports plan to spend time outside today to help him feel grounded, eat, and sleep. Client to continue PHP to further prevent decompensation, combat negative thinking, and improve emotional regulation. Time Stopped:: 11:11
--- NOTE | 2018-04-24 15:26 | BH.COMM ---
Communication Note - Communication with Client Communication Note: Therapist followed up with client regarding earlier symptoms. Client reported his anxiety has decreased from a 7 out of 10 to a 5 out of 10. Client shared he feels more in control of his mood and symptoms, like I can think things through before acting and that he plans to go hiking after group. Client shared his appetite has returned and he wants to eat. Client and therapist discussed basic needs and the importance of taking time to rest and sleep today. Therapist and client reviewed calming strategies to promote sleep. Client was willing to try progressive muscle relaxation and hot tea. Client denies urges to self-harm. Client denied active suicidal ideation, plan, and intent sharing it's nothing like that today. Client reports ability to drive safely and maintain safety today. Client agreeable to seek emergency care should he feel unsafe and he has resources for crisis. Client reported he will absolutely be in group tomorrow. Therapist informed client that treatment team has been informed about client's interest in ECT and client expressed a statement of gratitude.
--- NOTE | 2018-04-24 15:34 | BH.COMM_ITS ---
Communication Note - Communication with Client Communication Note: Therapist followed up with client regarding earlier sy mptoms. Client reported his anxiety has decreased from a 7 out of 10 to a 5 out of 10. Client shared he feels more in control of his mood and symptoms, like I can think things through before acting and that he plans to go hiking after group. Client shared his appetite has returned and he wants to eat. Client and therapist discussed basic needs and the importance of taking time to rest and sleep today. Therapist and client reviewed calming strategies to promote sleep. Client was willing to try progressive muscle relaxation and hot tea. Client denies urges to self-harm. Client denied active suicidal ideation, plan, and intent sharing it's nothing like that today. Client reports ability to drive safely and maintain safety today. Client agreeable to seek emergency care should he feel unsafe and he has resources for crisis. Client reported he will absolutely be in group tomorrow. Therapist informed client that treatment team has been informed about client's interest in ECT and client expressed a statement of gratitude.
--- NOTE | 2018-04-25 09:06 | BH.SGPN.GN ---
Behaviors/Verbalizations/Mental Status: []Client alert and oriented, casual appearance, hygiene fair. Eye contact fair. Motor activity restless at times AEB playing with his hair tie, but improved from yesterday. Speech soft and short. Affect flat, mood dysthymic, but reporting okay. Thoughts linear, logical, no signs of hallucinations or delusions. Reviewed client?s symptom tracker- scores reduced since yesterday. Client indicated a 1 out of 5 for thoughts of suicide which is down from yesterday. Client denied suicide plan or intent as of 04/25/18. Client Response/Progress/Benefit: []Client responded somewhat well to session, quiet unless prompted. Client reports feeling tired and ?okay, better than yesterday.? Client shared his mood has improved today due to getting some rest and receiving positive news about his brother this morning. Client reported ?we hired an state attorney and they are actually helping him.? Client reports plan to visit his brother on Monday. Client stated he did not go hiking yesterday, but he did go grocery shopping which kept client from isolating. Client continues to report ongoing sleeping issues and shared he slept last night, ?but I kept waking up.? Client unable to identify strategies to manage his mental health today, but with therapist prompting, client recognized that he can continue to benefit from taking care of his basic needs. Client identified making it to group today as something he deserves credit for. Client appeared to benefit from acknowledging his slightly improved mood and connecting with peers. Progress variable as client continues to struggle with sleep issues and reports inconsistent follow through with behavioral activation activities. However, client has progressed with not engaging in self-harming behaviors and he has been talking more with his family. Client to continue PHP to prevent decompensation, maintain safety, and increase emotional regulation.
--- NOTE | 2018-04-25 11:10 | BH.SGPN.GN ---
Behaviors/Verbalizations/Mental Status: [Eye contact is fair. Motor activity is appropriate. Appearance is disheveled clothing casual, grooming appearing unattended to. Speech is soft limited input provided. Mood is depressed, anxious. Affect is constricted. Thoughts are linear and logical. No evidence of psychosis.] Client Response/Progress/Benefit: [Client receptive of session and did well to participate in group activity. Provided limited input, though able to remain attentive in discussion. Listened as the group reviewed various factors impacting their ability to overcome the ?impossible? task faced in group activity. Client identified relating to and experiencing the lack of motivation discussed by the group. Client able to make connection between negative or apathetic thoughts and desire to try during the activity. Client appeared to connect with the groups insights from activity to discussion on fixed vs. growth mindsets. Client benefited from gaining perspective on how thoughts and one?s mindset can impact mental health management. Listened and took notes as the group discussed characteristics of each mindset and strategies for applying a growth mindset approach to their own lives and when facing problems. Client willing to participate in prompt in which participants were instructed to write down a current challenge and ways to approach this challenge with a growth mindset. Recommended continued IOP tx to decrease depression, increase healthy coping strategies, and maintain safety. ] Narrative Note: []
--- NOTE | 2018-04-25 12:26 | BH.COMM ---
Communication Note - Communication with Client Communication Note: Client could not stay for an individual session today due to work. Client reported he is in a better place today than he was yesterday. Client denies any active suicidal ideation, plan, and intent as of 04/25/18. Client's affect has improved from yesterday and he presents as less restless and agitated. Client reports he got sleep last night and feels able to be safe driving for work. Therapist encouraged self-care activities today and gave client homework to review the common types of distortions for next individual session.
--- NOTE | 2018-04-26 11:15 | BH.SGPN.GN ---
Behaviors/Verbalizations/Mental Status: []Client alert and oriented, disheveled appearance. Eye contact fair. Motor activity appropriate. Speech soft. Affect flat, mood dysthymic. Thoughts linear, logical, no signs of hallucinations or delusions. Client Response/Progress/Benefit: []Client responded well to session, passive participant, but willing to set a goal. Client passively engaged in the activity that demonstrated the effort and time it takes to challenge distortions. Client helped the group practice challenging example cognitive distortions, communicating in his small group and taking notes. Client listened as the group learned ways to combat negative thinking and client stated he plans to ask himself ?is it kind? when he recognizes a negative thought, ?because I always beat myself up.? Client appeared to benefit from practicing thought challenging and gaining awareness of the effort it takes to reframe negative thoughts. Progress difficult to identify as client is often quiet and passive during group sessions. Client to continue PHP to prevent decompensation and increase emotional regulation.
--- NOTE | 2018-04-26 14:38 | BH.MDN_ITS ---
Multi-Disciplinary Note - Note 45-min Individual Time Started:: 12:15 Date: 04/26/18 Purpose of session/treatment goals addressed:: The purpose of this session was address current symptoms, stressors, and barriers. Another goal was to assess risk, identify alternative coping strategies to self-harming, and establish a behavioral activation goal for today. Other topics included: cognitive restructuring, impulse control, and maintenance cycles. Eye Contact:: Fair Motor Activity:: Restless - AEB shaking his leg throughout session. At times client able to stop shaking his leg. Appearance:: Disheveled Speech:: Soft Mood:: Dysthymic Affect:: Constricted Thoughts:: Linear, Logical, No evidence of hallucinations/delusions noted Staff Interventions:: Therapist used active listening and open-ended questions to explore client's current stressors, symptoms, and mood. Therapist helped client process his recent setback of cutting and therapist assisted client in finding alternatives coping skills to prevent self-harm. Therapist assessed risk and client contracted for safety. Therapist used strengths perspective to help client see his mental health wins. Therapist reviewed maintenance cycles with client and explored barriers keeping client stuck in his current depressive maintenance cycle. Therapist used behavioral activation strategies to assist client in creating solutions for his barriers. Therapist used motivational interviewing skills to promote follow through. Therapist had client identify negative thoughts that reinforce depressive symptoms and used cognitive restructuring techniques. Therapist gave client homework to work on his iden tified goal and practice the 5-minute rule for impulse control. Client Response:: Client responded well to session, opening up to therapist about his recent setback in cutting. Client shared he did not cut with the intention to kill himself or hurt himself, ?I just wanted to feel something.? Client able to identify that he was triggered by his mother canceling plans with him. Client shared ?I could have done something else instead, but I didn?t.? Therapist and client discussed ways to effectively handle the setback such has challenging self-hate and identifying a plan to prevent setbacks in the future. Client shared he tends to self-harm when he feels increased impulsivity. Client identified warning signs that will help him have more awareness that he is becoming more impulsive. Client able to identify alternative strategies to self- harm such as going outside, using the 5-minute rule, calling a support, and playing his cats. Client stated he continues to struggle with low motivation and energy. Client reported awareness that he feels better when he engages in activities, but he often has negative thoughts that keep him stuck. Client shared ?once I sit on the couch I know I won?t move.? Therapist helped client list his negative thoughts and behaviors that would reinforce the depressive maintenance cycle. With therapist elicitation, client able to identify evidence against his negative thought and solutions to overcoming barriers. Client set a behavioral activation goal, rating activities in terms of pleasure and effort on a scale from (1-10). Client acknowledged that if he can use the solutions to overcome the barrier of low motivation he will have more energy and improved mood. Client also recognized he can increase his engagement in group to improve his mood. Client stated it would be helpful for the facilitators to call on him. Risks/Concerns:: Client reported cutting last night. The cuts were visible and appeared superficial. They did not need bandages or medical care. Client stated he was not intending to kill himself with the cutting, he experienced increased impulsive urges and I just wanted to feel something. Client denies active suicidal ideation, plan, and intent as of 04/26/18. Client reports reduced impulsivity today. Client reports ability to maintain safety today and agreeable to creating strategies to use instead of self-harming behaviors. Progress Toward Goals/Plan:: Client continues to struggle with managing depressive symptoms and had a recent setback in self-harming behaviors. Client self-reported that he could have chose to engage in alternative coping strategies instead of self-harming, but he did not. Client?s sleep has somewhat improved and he was able to get some rest yesterday. Client?s appetite has improved. Client continues to be inconsistent with applying healthy coping skills discussed in group and individual sessions due to lack of motivation and energy. Client acknowledges that when he engages in pleasurable activities he feels better and was receptive to creating a goal for tonight. Client agreeable to engaging in impulse control activities to prevent self-harming behaviors. Client reports being hopeful about ECT and is scheduled to meet with [facility] psychiatrist tomorrow. Client to work on goal for homework and practice impulse control strategies. Client to continue PHP to prevent decompensation, maintain safety, and increase emotional regulation. Time Stopped:: 12:55
--- NOTE | 2018-04-27 09:05 | BH.SGPN.GN ---
Behaviors/Verbalizations/Mental Status: [] Eye contact is good. Motor activity is appropriate. Appearance is disheveled. Speech is Appropriate. Mood is depressed. Affect is flat. Thoughts are linear and logical. No evidence of psychosis. Reviewed daily check in sheet and no reports of suicidal ideations or intent. Client Response/Progress/Benefit: [] Pt participated when prompted. Withdrawn during most of the group discussion. Appeared tearful at times. Shared with the group that he had a negative interactions with his mother yesterday. According to pt he often encourages her to spend time with him. She arrived yesterday and was talking on the phone with someone else for a lengthy period of time. Pt reports she was ignoring him and eventually left. This led to overwhelming depression and ultimately negative thoughts and unhealthy coping skills. Pt choose not to disclose much more and did not appear to want to discuss the issue with the group. No progress noted. Benefited from group support. Will continue in PHP to maintain safety, prevent decompensation, and increase coping skills. Narrative Note: []
--- NOTE | 2018-04-27 10:03 | BH.SGPN.GN ---
Client was out from group briefly to see the psychiatrist. Behaviors/Verbalizations/Mental Status: []Client alert and oriented, casual dress, hygiene good. Eye contact fair. Motor activity restless AEB shaking his leg. Speech soft. Affect congruent to mood- but smiling during the activity, mood depressed. Thoughts linear, logical, no signs of hallucinations or delusions. Client Response/Progress/Benefit: []Client responded well to session, quiet, but engaging in the activity. Client appeared to be listening to discussion as shown by his eye contact and nodding. Client agreed with peers the pitfalls can be easy to fall into and that they can keep a person stuck. Client engaged in the activity that helped the group understand the impact of pitfalls. Client was quiet during the activity, but the group turned to client as he was consistent with remaining calm when the group became emotionally reactive. Client shared ?we needed awareness? and that it is hard to overcome a pitfall if one does not know it is there. Client nodded when peers talked about self-sabotaging when close to a pitfall. Client appeared to benefit from gaining awareness of how lack of communication and self-sabotage can be a pitfall and learning strategies to manage pitfalls. Progress variable as client continues to engage passively in group sessions. However, his attendance is consistent, and he appears to be benefitting from social interaction as client often isolates. Client to continue PHP to prevent decompensation, reduce depressive symptoms, and increase consistent application of healthy coping skills.
--- NOTE | 2018-04-27 11:07 | BH.SGPN.GN ---
Behaviors/Verbalizations/Mental Status: [Client alert and oriented, casually dressed and groomed ? client appearing to have placed more effort into grooming AEB client hair clean and styled. Eye contact fair to good. Motor activity appropriate. Speech using a soft tone and limited input provided. Affect constricted, mood anxious and dysthymic. Thoughts linear, logical, no signs of hallucinations or delusions. ] Client Response/Progress/Benefit: [Client contributed limited input to discussion, responded when prompted. Appeared engaged though AEB consistent eye contact and taking notes throughout discussion. Client connected with the group discussion on various ways pitfalls experienced in the activity relate to potential personal barriers. Client identified his personal pitfalls include: social anxiety, limited and inconsistent support, unhealthy coping mechanisms, as well as lack of motivation. Client reported he will focus on breaking things down into more manageable steps, as well as finding healthy means of distraction when experiencing urges to engage in unhealthy means of coping as strategies for avoiding and working through personal pitfalls. Client seemed to benefit from increased awareness of personal pitfalls and identifying strategies that can help client overcome current or future pitfalls. Client to continue PHP level of care to prevent decompensation, maintain safety, and promote heathy change behaviors. ] Narrative Note: []
--- NOTE | 2018-04-27 12:13 | PCM.PN.BLA ---
Progress Note Chief Complaint: The patient is a 27-year old male who is an active participant in the partial hospitalization program at [facility]. He has a history of chronic depression, anxiety, PTSD symptoms, and features of borderline personality disorder. He is chronically suicidal. He has a history of alcohol abuse. History of Present Illness/Interim History: The patient says that he has had ups and downs. He has continued to have stressful family interactions. Because of a stressful for family interaction he cut himself on his neck. He said that his anxiety level has been high because of family problems. He does deny recent suicidal thoughts. His mood continues to be low. He said that he drank a fair amount 2 days ago because he was really anxious. However no alcohol for the past 2 days. He said that his PTSD symptoms have continued. He has had some bad nightmares. He expressed interest in receiving ECT treatments. I explained the process to him and will be attempting to get him started through the [facility] of psychiatry. The patient has not started Latuda. Not keen on taking any antidepressant medicines at this time. He prefers to procede with ECT treatments. Current Psychiatric Medications: None Review of Symptoms: Psychiatry: Continuing depression and anxiety. He is not suicidal. There is no psychosis. He is cognitively intact. Constitutional: He is of thin build and his weight has been steady. His energy level is fair. Mental Status Examination: The patient presents as a quiet, dysphoric male who is casually dressed and appropriately groomed. He wears a ponytail and glasses. His thoughts are logical and coherent. He reports ongoing symptoms of depression and anxiety. He is chronically suicidal but there is no current intent. He is not psychotic. He is cognitively intact. Diagnoses: [] [place] I: Persistent depressive disorder, generalized anxiety disorder, PTSD, insomnia, alcohol abuse [place] II: Borderline Personality disorder [place] III: Nicotine dependence Plan: The patient will continue in the partial hospitalization program. I am referring him to the [facility] ECT program. I will see him again within the next few weeks.
--- NOTE | 2018-04-27 12:22 | PN_ITS ---
Progress Note Chief Complaint: The patient is a 27-year old male who is an active participant in the partial hospitalization program at [facility]. He has a history of chronic depression, anxiety, PTSD symptoms, and features of borderline personality disorder. He is chronically suicidal. He has a history of alcohol abuse. History of Present Illness/Interim History: The patient says that he has had ups and downs. He has continued to have stressful family interactions. Because of a stressful for family interaction he cut himself on his neck. He said that his anxiety level has been high because of family problems. He does deny recent suicidal thoughts. His mood continues to be low. He said that he drank a fair amount 2 days ago because he was really anxious. However no alcohol for the past 2 days. He said that his PTSD symptoms have continued. He has had some bad nightmares. He expressed interest in receiving ECT treatments. I explained the process to him and will be attempting to get him started through the [facility] Department of psychiatry. The patient has not started Latuda. Not keen on taking any antidepressant medicines at this time. He prefers to procede with ECT treatments. Current Psychiatric Medications: None Review of Symptoms: Psychiatry: Continuing depression and anxiety. He is not suicidal. There is no psychosis. He is cognitively intact. Constitutional: He is of thin build and his weight has been steady. His energy level is fair. Mental Status Examination: The patient presents as a quiet, dysphoric male who is casually dressed and appropriately groomed. He wears a ponytail and glasses. His thoughts are logical and coherent. He reports ongoing symptoms of depre ssion and anxiety. He is chronically suicidal but there is no current intent. He is not psychotic. He is cognitively intact. Diagnoses: [] [place] I: Persistent depressive disorder, generalized anxiety disorder, PTSD, insomnia, alcohol abuse [place] II: Borderline Personality disorder [place] III: Nicotine dependence Plan: The patient will continue in the partial hospitalization program. I am referring him to the [facility] ECT program. I will see him again within the next few weeks.
--- NOTE | 2018-04-27 13:00 | BH.COMM ---
Communication Note - Communication with Client Communication Note: Therapist attempted to meet with client, but client could not stay for an individual session today due to work. Client reported he had some stressors with his mother and grandmother last night and this morning, but he feels more in control of his emotions after attending group today. Client's affect has improved from yesterday and he reports plans to see his brother olga. Client denies any active suicidal ideation, plan, and intent as of 04/27/18. Client reports reduced impulse today. Client continues to endorse depressed mood, low motivation, and low energy, but he reported being hopeful about ECT. Client reported he was able to accomplish some of his goal from yesterday and denied self-harming or drinking last night which is positive. Client receptive reaching out to a friend this weekend, focusing on behavioral activation goals, and maintaining a routine. Client to meet with therapist next week for individual session.
--- NOTE | 2018-04-30 14:14 | BH.COMM ---
Communication Note - Communication with Client Communication Note: This therapist attempted to call client's outpatient therapist, Iliana Hanson, regarding client?s treatment progress and updates. This therapist left a message.
--- NOTE | 2018-05-01 07:16 | BH.COMM_ITS ---
Communication Note - Communication with Client Communication Note: This therapist attempted to call client's outpatient t herapist, Iliana Hanson, regarding client?s treatment progress and updates. This therapist left a message.
--- NOTE | 2018-05-01 10:10 | BH.SGPN.GN ---
Behaviors/Verbalizations/Mental Status: [Client maintained fair eye contact, casually dressed appearing disheveled in terms of hygiene, motor activity appropriate, speech normal rate and soft tone limited input provided, mood anxious and depressed, affect constricted, thoughts linear and logical, no evidence of delusions or hallucinations reported or observed] Client Response/Progress/Benefit: [Client receptive of attending session; however, providing limited input to discussion. Actively paying attention throughout AEB eye contact and taking notes when discussing eustress vs. distress. Client appeared to connect with discussion regarding the various factors impacting stress levels, nodding throughout. Client noted that his isolation and past experiences are factors contributing to current stress levels. Client was able to personally reflect upon current personal stressors through completion of identification worksheet, however declined to share this with the group. Benefitted from increasing awareness of impact stressors have on mental health and ability to function when stress is not managed. Client recommended continued IOP tx to improve anxiety and depression management and decrease self-deprecation, as well as prevent decompensation] Narrative Note: []
--- NOTE | 2018-05-01 10:15 | BH.SGPN.GN ---
Behaviors/Verbalizations/Mental Status: []Pt eye contact fair, casually dressed, motor activity appropriate, speech normal rate and tone, mood depressed, constricted affect, thoughts linear and intact, no evidence of delusions or hallucinations. Client Response/Progress/Benefit: [] Pt passive participant as evidenced by pt adding very few comments to discussion, appeared attentive to peers? comments. Pt shared he agreed with the quote because if flexible will be able to adapt and bounce back. Pt agreed with peers it's important to be resilient so can bounce back from hardships and crises. Pt mostly quiet in small group discussion about the various strategies that can help strengthen one's resilience, did add comments if elicited by therapist. Pt identified avoid seeing crises as insurmountable can strengthen resilience because when see a crisis as impossible to overcome then you will limit yourself and what you can accomplish. Pt seemed to benefit from increased awareness of what strategies can help strengthen resilience. Narrative Note: []
--- NOTE | 2018-05-01 11:15 | BH.SGPN.GN ---
Behaviors/Verbalizations/Mental Status: []Client alert and oriented, disheveled appearance. Eye contact fair. Motor activity restless at times, client appeared agitated at one point during group, but was able to use self-regulation to calm down. Speech within normal limits. Affect constricted, was smiling with peers occasionally. Mood anxious, dysthymic. Thoughts linear, logical, no signs of hallucinations or delusions Client Response/Progress/Benefit: []Client responded well to session, off topic at times, but more engaged than previous sessions. Client participated in the group activity and shared it was helpful to listen to different people?s ideas. Client listened as the group reviewed the strategies to increase personal resilience. Client received a stress ball to help client remember the resilience factors. Client reported he would like to increase his resilience by increasing his social support. Client at first shared he was going to do this by adopting another cat, but he was gently challenged by peers to increase his human interactions. Client received ideas from peers on local animal shelters client could volunteer at, but client did not appear receptive as shown by lack of feedback. Client appeared to benefit from setting a goal to increase his resilience. Progress noted as client has not self-harmed in the last week, but he continues to struggle with mood instability and inconsistent application of coping skills. Client to continue PHP to prevent decompensation and increase consistent use of healthy coping skills.
--- NOTE | 2018-05-01 15:00 | BH.MDN ---
Multi-Disciplinary Note - Note 45-min Individual Time Started:: 08:42 Date: 05/01/18 Purpose of session/treatment goals addressed:: The purpose of this session was to address client's current stressors, progress, barriers, and plan of care moving forward. Another goal was to establish strategies to increase emotional regulation, connectiveness, and impulse control. Other topics included: cognitive restructuring, ECT, and psychoeducation. Eye Contact:: Fair Motor Activity:: Appropriate Appearance:: Disheveled - client's jeans appeared unwashed Speech:: Appropriate Mood:: Irritable, Dysthymic Affect:: Constricted Thoughts:: Linear, Logical, No evidence of hallucinations/delusions noted Staff Interventions:: Therapist used active listening and open-ended questions to explore progress barriers, and plan of care moving forward. Therapist used solution-focused methods to help client set goals moving forward that will promote impulse control, emotional regulation, and connectiveness. Therapist used strengths perspective to empower client on his mental health ?wins? over the weekend. Therapist provided psychoeducation on trauma and helped client gain insight on what to expect from ECT. Therapist and client discussed resources and options for getting trauma therapy. Therapist assisted client in setting a goal for increasing engagement in others and to increase impulse control. Client Response:: Client responded well to session, open to meeting with therapist and discussing topics above. Client shared he was social this weekend having spent time with his sister and her children as well as going to a birthday constitution party. Client reported being social and connected with others improved his mood. Client denied self-harm over the weekend and stated he had some suicidal thoughts on Monday, but they were brief. Client able to identify some progress sharing his kitchen has been clean more consistently, he has reduced suicidal thoughts, and he is hopeful about ECT. However, client shared overall, he feels like I'm cheating myself as client continues to struggle with feeling disconnected and depressed. Client stated feeling this way impacts his ability to connect in group which makes client ambivalent to continue. Client and therapist identified strategies to help client feel more present in group. Client and therapist discussed client?s goals and expectations moving forward. Client also continues to use drinking to cope with poor sleep and nightmares. Client self-reported that drinking maintains his depressive cycle and impulsivity. Client somewhat receptive to identifying strategies to reduce drinking and increase impulse control. Client willing to buy less alcohol sharing if it is not in his house he will not use it. Client reports understanding that his alcohol use may impact ECT treatment and client shared he is planning to stop using. Client continues to be interested in seeing a physician for medical marijuana to help with PTSD symptoms. Client receptive to getting connected with resources for trauma therapy and appeared to connect with therapist's psychoeducation on trauma and the brain. Client agreeable to call and schedule ECT appointment today and to work on goals developed in session. Risks/Concerns:: Client denies suicidal ideations, plan, and intent as of 05/01/18. Client denies self-harming since his recent relapse last week. Client reported he has not been suicidal for a few days in a row which shows progress. Client reports ongoing drinking in the evenings to help with sleep, but he recognizes it is not a helpful solution and was willing to discuss strategies to reduce drinking. Progress Toward Goals/Plan:: Client's progress continues to be variable based on the day and week. Client has shown some progress towards treatment goals as he reports increased cleaning at home, being social this weekend, and reduced suicidal thoughts and self-harm. However, client continues to feel disconnected, have depressive symptoms, experience nightmares, and drink in the evenings to help with sleep. Client acknowledges that drinking is not a helpful solution to sleep and that at times it makes him feel worse. Client also continues report inconsistent application of coping skills learned in individual and group sessions. Client to call and schedule his ECT appointment today and plans to continue PHP for at least another week while he waits for ECT treatments to start. Client receptive to goals set in session and reports willingness to apply skills learned. Therapist to help client set up aftercare options. Time Stopped:: 09:32
--- NOTE | 2018-05-02 08:43 | BH.COMM ---
Communication Note - Communication with Client Communication Note: Client unable to stay for individual session today due to needing to leave group early for an ECT intake appointment in [place]. Client reports plan to attend tomorrow, 05/03/18.
--- NOTE | 2018-05-02 09:50 | BH.SGPN.GN ---
Behaviors/Verbalizations/Mental Status: [] Pt eye contact fair, disheveled in appearance, motor activity appropriate, speech normal rate and tone, mood depressed, flat affect, thoughts linear and intact, no evidence of delusions or hallucinations. Reviewed client?s symptom tracker, no signs of suicidal ideation, plan, or intent as of today. Client Response/Progress/Benefit: [] Client reported yesterday he almost cut off his finger when cooking dinner. Client shared his finger is okay, just added some excitement to his evening. Client stated he did yoga before bed, which he shared does help him calm down. Client reported he attempted to read a book, but had to switch to a easy book because couldn't concentrate for the book he wanted to read so he felt like a failure. Client struggled with challenging his negative thought that he was a failure for not being able to read the book he wanted to read. Therapist and peers attempted to help client reframe and challenge negative thought, but client just shrugged his shoulders. Client's progress could be hindered by client not consistently applying the skills he has learned since starting PHP. Client to continue PHP to decrease depression, maintain safety, and prevent decompensation. Narrative Note: []
--- NOTE | 2018-05-02 10:10 | BH.SGPN.GN ---
Behaviors/Verbalizations/Mental Status: [Client alert and oriented, disheveled appearance. Eye contact fair to good. Motor activity appropriate. Speech within normal limits. Affect congruent, mood anxious, dysthymic. Thoughts linear, logical, no signs of hallucinations or delusions. ] Client Response/Progress/Benefit: [Client receptive to session, provided some input, though a mostly passive participant. Actively listening throughout discussion on stress. Able to brainstorm with the group positive and negative aspects of stress on physical and mental health. Client shared connecting with discussion that even positive things can create stress in one?s life.? Client participated in identifying current stressors impacting mental health. Client?s current stressors included; his mental and physical health, finances, avoidance, and family stress. Client reports his stress jar is currently full, indicating that this is impacting his ability to cope with daily stressors in healthy ways and increased hopelessness. Appeared to benefit from gaining awareness of own current stressors and learning about the impact stress has on overall wellbeing. Progress noted in improved engagement in group and insights provided. Recommend continued PHP tx to improve consistent use of healthy coping skills and to further decrease intensity of symptoms.] Narrative Note: []
--- NOTE | 2018-05-03 08:44 | BH.COMM_ITS ---
Communication Note - Communication with Client Communication Note: Client unable to stay for individual session today due to needing to leave group early for an ECT intake appointment in [place]. Client reports plan to attend tomorrow, 05/03/18.
--- NOTE | 2018-05-03 09:04 | BH.SGPN.GN ---
Behaviors/Verbalizations/Mental Status: [Eye contact good. Motor activity WNL. Appearance casual, appropriately groomed. Speech increase in rate compared to baseline and providing significantly more input than usual. Mood euthymic client self-reported feeling he may be experiencing sx of marquise. Affect full. Thoughts racing, circumstantial. No evidence of delusions or hallucinations. Reviewed daily check in sheet and no reports of suicidal ideations or intent] Client Response/Progress/Benefit: [Client actively engaged in session and providing significantly more input to group than usual baseline. Client self-identified experiencing symptoms associated with a potential manic or hypomanic episode and discussed increased energy and urges to behave impulsively. He was receptive of and appeared to benefit from discussing potential health strategies for channeling his energy to prevent unhealthy or maladaptive behaviors. Client identified that he could clean his house or give his cats a bath. Went on to discuss a stressor as his recent referral appointment for ECT treatment has not gone over well due to client feeling disrespected and talked down to by the psychiatrist. Client reflected that he became defensive as a result but overall was able to prevent this experience from negatively impacting his day or hope for improving mental health sx. Client shared journaling and writing some poetry to destress after the appointment which displays progress in implementation of healthier means for coping. Recommended continued PHP tx to prevent decompensation, improve application of healthy coping mechanisms, and maintain safety.] Narrative Note: []
--- NOTE | 2018-05-03 10:20 | BH.SGPN.GN ---
Behaviors/Verbalizations/Mental Status: []Client alert and oriented, disheveled appearance. Eye contact good. Motor activity restless. Speech within normal limits- talking more than usual. Affect congruent, mood anxious, agitated. Thoughts linear, logical, no signs of hallucinations or delusions. Client Response/Progress/Benefit: []Client responded well to session, active in discussion of the conflict resolution styles. Client agreed with the quote that shared peace is the ability to cope with conflict. Client shared conflict can happen internally, such as having conflicting values, and externally. Client helped the group identify barriers to managing conflict such as emotions, cognitive distortions, and difficult people. Client helped the group identify the different types of conflict resolution styles. Client reported he uses all of the styles ?depending on the situation and person.? Client shared he would like to improve his conflict resolution style by ?being slower to argue.? Client appeared to benefit from gaining awareness of the different types of conflict resolution styles and how this impacts client?s mental health. Client to continue PHP to increase emotional regulation and reduce intensity of symptoms.
--- NOTE | 2018-05-03 11:20 | BH.SGPN.GN ---
Behaviors/Verbalizations/Mental Status: [Eye contact is good more consistent that usual baseline. Motor activity is appropriate. Appearance is casual appearing somewhat disheveled as clothing is unwashed. Speech is Appropriate proving more input than usual though not at an increased rate. Mood is euthymic reported as feeling ?somewhat manic? in first group and expressing increased energy. Affect is full, bright. Thoughts are linear and logical. No evidence of psychosis, some characteristics significant for mar[place]ise.] Client Response/Progress/Benefit: [Client an active participant in group discussion and activity which is outside of usual presentation as client often is reserved or providing limited input to discussion. Client did well to reflect on personal conflict style and indicated he falls in ?different styles depending on the situation?. Client reflected that his internal conflict resolution style is much less competing than his external. Worked with the group to identify barriers to effectively managing conflict and indicated personal barriers of ?impulsivity? and being ?quick to turn to extremes? when feeling attacked by others. Client indicated wanting to improve his approach to conflict resolution on an internal level. Client also did well to work with the group on identifying strategies to promote better management of conflict which he indicated include taking a break. Benefited from group as he was able to identify how current conflict style impacts his own mental health. Client displaying progress in ability to make connections to materials and provide feedback to the group. Client recommended continued PHP tx to maintain safety, increase emotion regulation, and improve use of healthy means for coping.] Narrative Note: []
--- NOTE | 2018-05-03 12:51 | BH.MDN_ITS ---
Multi-Disciplinary Note - Note 30-min Individual Time Started:: 12:17 Date: 05/03/18 Purpose of session/treatment goals addressed:: The purpose of this session was to address current stressors, symptoms, and plan of care moving forward. Another goal was to establish a plan to help client manage emotions today. Other topics included: ECT and discharge. Eye Contact:: Good Motor Activity:: Restless Appearance:: Disheveled Speech:: Rapid Mood:: Anxious, Other - agitated, self-reported as hypomanic earlier this morning Affect:: Constricted Thoughts:: Linear, Logical, No evidence of hallucinations/delusions noted Staff Interventions:: Therapist used active listening and open-ended questions to gather information on client's current stressors, symptoms, and recent ECT appointment. Therapist provided emotional support as the experience did not go well and therapist offered different location options for ECT. Therapist discussed discharge and plan of care moving forward. Therapist reviewed healthy coping skills to help client regulate emotions and assisted client in developing a plan for tonight. Client Response:: Client responded well to session, was quick to leave sharing he had some errands to run. Client reported he had a bad experience at his ECT intake appointment yesterday and spent a few minutes venting to therapist. Client shared it was helpful to get his emotions out and he was receptive to learning about other ECT options. Client stated he wants to further pursue getting a medical marijuana card because client wants to be able to get sleep again without using alcohol as a sleep aide. Client and therapist discussed trauma therapy again. Client was more receptive to following through with this service to help client more effectively manage his PTSD symptoms, especially at night. Client reported he was feeling hypomanic this morning I still felt wired from yesterday. Client shared coming to group helped him calm down and he reported feeling more even now. Client stated he does not feel like he is a risk to himself and shared staying busy today will help him. Client and therapist discussed ways client can manage his energy and increase impulse control today. Client reports plan to clean one room in his house, cook, and call a support today. Risks/Concerns:: Client denies any active suicidal ideation, plan, and intent as of 05/03/18. Client reported this morning he felt hypomanic, but now client feels ?more even.? Client agreeable to plan established in session to help client manage energy and impulse tonight. Progress Toward Goals/Plan:: Client continues to show variable progress towards treatment goals. Client reports awareness of thoughts and patterns of behavior that reinforce mental health symptoms, but he continues to struggle with consistent application of coping skills and emotional dysregulation. Client has shown some progress with increasing socialization and reaching out to supports, but he can continue to strengthen his support network and engagement in activities. Client does not want to pursue ECT at [facility], but was open to learning about other locations. Client reports wanting to pursue individual tr auaz therapy to help with PTSD symptoms. Client reports wanting to also quit drinking. Client to continue PHP with next Monday being his last day in order to return to work more consistently. Client can benefit from another week of PHP to prevent decompensation, maintain safety, establish aftercare, and increase emotional regulation. Time Stopped:: 12:33
--- NOTE | 2018-05-04 09:05 | BH.SGPN.GN ---
Behaviors/Verbalizations/Mental Status: [] Eye contact is good. Motor activity is appropriate. Appearance is disheveled. Speech is Appropriate. Mood is depressed. Affect is flat. Thoughts are linear and logical. No evidence of psychosis. Reviewed daily check in sheet and pt reports 2/5 for suicidal ideations and 0/5 for intent. Will have therapist check in with pt after group. Client Response/Progress/Benefit: [] Pt did not participate in group discussion. Elected not to check-in for today. Group did not pressure pt. Was attentive during group however restless and fidgety. Overall reported feeling negative. No progress noted. Limited benefit from group today however could prove as distraction. Will continue in PHP to maintain safety, prevent further decompensation, and increase coping skills. Narrative Note: []
--- NOTE | 2018-05-04 10:33 | BH.MDN ---
Multi-Disciplinary Note - Note 30-min Individual Time Started:: 10:00 Date: 05/04/17 Purpose of session/treatment goals addressed:: During process group pt reported 2/5 on suicidal ideations and 0/5 for intent. This therapist met with him to further assess. Eye Contact:: Fair Motor Activity:: Restless Appearance:: Disheveled Speech:: Appropriate Mood:: Depressed Affect:: Flat Thoughts:: Linear, Logical, No evidence of hallucinations/delusions noted Staff Interventions:: utilized [place] techniques to elicit change behaviors. Allowed pt to vent frustrations. Reviewed safety plan and coping skills for SI. Client Response:: Pt reports that he had a poor interaction with his mother last night. Reports that he felt bad and felt guilty for how he handled the situation. He reports that last evening he was in a dark place however today things are not as dark. Smiles at times. Is future-oriented towards the weekend and spending time with friend in [facility]. Talked about looking forward to weather getting better so he can get out and socialize more. Denies active suicidal ideations, plan, or intent. Feels that he can control negative thoughts through skills. Aware of crisis and ER if SI returns. Remains optimistic about getting ECT and its benefits. Risks/Concerns:: Denies active suicidal ideations, plan, or intent. Reports he experieced SI last night after argument with mother never had intent or plan. Was able to manage thoughts and while still feels depressed and guilty for his actions denies any suicidal ideations since waking up this AM. Future-oriented. Smiling at times. Progress Toward Goals/Plan:: Limited progress noted. Stressor last night resulted in fleeting SI. Was able to manage and feels less depressed today. Future-oriented. Has plans for this weekend and next week. Will continue in [facility] to maintain safety, stablize mood, and increase functioning. Will continue to attempt to link for ECT. Time Stopped:: 10:25
--- NOTE | 2018-05-04 10:49 | BH.MDN_ITS ---
Multi-Disciplinary Note - Note 30-min Individual Time Started:: 10:00 Date: 05/04/17 Purpose of session/treatment goals addressed:: During process group pt reported 2/5 on suicidal ideations and 0/5 for intent. This therapist met with him to further assess. Eye Contact:: Fair Motor Activity:: Restless Appearance:: Disheveled Speech:: Appropriate Mood:: Depressed Affect:: Flat Thoughts:: Linear, Logical, No evidence of hallucinations/delusions noted Staff Interventions:: utilized [place] techniques to elicit change behaviors. Allowed pt to vent frustrations. Reviewed safety plan and coping skills for SI. Client Response:: Pt reports that he had a poor interaction with his mother last night. Reports that he felt bad and felt guilty for how he handled the situation. He reports that last evening he was in a dark place however today things are not as dark. Smiles at times. Is future-oriented towards the weekend and spending time with friend in [facility]. Talked about looking forward to weather getting better so he can get out and socialize more. Denies active suicidal ideations, plan, or intent. Feels that he can control negative thoughts through skills. Aware of crisis and ER if SI returns. Remains optimistic about getting ECT and its benefits. Risks/Concerns:: Denies active suicidal ideations, plan, or intent. Reports he experieced SI last night after argument with mother never had intent or plan. Was able to manage thoughts and while still feels depressed and guilty for his actions denies any suicidal ideations since waking up this AM. Future-oriented. Smiling at times. Progress Toward Goals/Plan:: Limited progress noted. Stressor last night resulted in fleeting SI. Was able to manage and feels less depressed today. Future-oriented. Has plans for this weekend and next week. Will continue in [facility] to maintain safety, stablize mood, and increase functioning. Will continue to attempt to link for ECT. Time Stopped:: 10:25
--- NOTE | 2018-05-04 11:16 | BH.SGPN.GN ---
Behaviors/Verbalizations/Mental Status: [Client alert and oriented, casually dressed and appropriately groomed. Eye contact fair. Motor activity WNL. Speech appropriate rate and tone. Affect congruent, mood dysthymic. Thoughts linear, logical, no signs of hallucinations or delusions.] Client Response/Progress/Benefit: [Client responded well to session, more active participant in both group discussion and challenge activity. Client worked with group to discuss the barriers faced in activity and connected this to barriers regrading change. Client benefited from gaining information on Decisional Balance technique in overcoming ambivalence to change. Client able to apply this strategy to identify the pros and cons regarding a mental health change he is currently considering. Client reports considering making strides towards eliminating alcohol and noted choosing this change because of the negative impact it has had on his finances and ability to be active. Progress made in client ability to internalize treatment content and provide input to the group. Client to continue IOP to reduce negative self-talk and improve application of healthy coping mechanisms. ] Narrative Note: []
--- NOTE | 2018-05-04 12:37 | PCM.PN.BLA ---
Progress Note Chief Complaint: The patient is a 27-year old male who is an active participant in the partial hospitalization program at [facility]. He has a history of chronic depression, anxiety, PTSD symptoms, and features of borderline personality disorder. He is chronically suicidal. He has a history of alcohol abuse. History of Present Illness/Interim History: The patient reports basically being status quo. His mood varies over time. He described himself today as hyper, imploding on myself. He says he has energy, but no motivation to do anything. He says he felt suicidal last night. His mother came over, but ignored him. He got into a verbal altercation with her and then felt bad afterwards. 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 He did have a consultation with the [facility] provider, Dr. Lemos about the possibility of ECT treatments. He decided not to pursue this with Dr. Lemos. However, he is still interested in pursuing ECT. Current Psychiatric Medications: None Review of Symptoms: Psychiatry: Continuing depression, anxiety and mood swings. He has suicidal thoughts but no current intent. There is no psychosis. He is cognitively intact. Constitutional: He is of average build and his weight has been steady. His energy level is good. Mental Status Examination: Patient presents as a calm, somewhat aloof male who is casually dressed and appropriately groomed. He wears a ponytail and glasses. His thoughts are logical and coherent. He reports ongoing depression. He is somewhat sarcastic and cynical. He is not actively suicidal. He is cognitively intact. Diagnoses: [] [place] I: Persistent depressive disorder, generalized anxiety disorder, PTSD, insomnia, alcohol abuse [place] II:Borderline Personality disorder [place] III: [] Nicotine dependence Plan: He will continue in the partial hospitalization program. We will look into ECT treatments through the [facility] system. The patient prefers to discuss medication issues with his outpatient nurse practitioner. I will see him again as needed.
--- NOTE | 2018-05-04 12:46 | PN_ITS ---
Progress Note Chief Complaint: The patient is a 27-year old male who is an active participant in the partial hospitalization program at [facility]. He has a history of chronic depression, anxiety, PTSD symptoms, and features of borderline personality disorder. He is chronically suicidal. He has a history of alcohol abuse. History of Present Illness/Interim History: The patient reports basically being status quo. His mood varies over time. He described himself today as hyper, imploding on myself. He says he has energy, but no motivation to do anything. He says he felt suicidal last night. His mother came over, but ignored him. He got into a verbal altercation with her and then felt bad afterwards. 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 Lemos about the possibility of ECT treatments. He decided not to pursue this with Dr. Lemos. However, he is still interested in pursuing ECT. Current Psychiatric Medications: None Review of Symptoms: Psychiatry: Continuing depression, anxiety and mood swings. He has suicidal thoughts but no current intent. There is no psychosis. He is cognitively intact. Constitutional: He is of average build and his weight has been steady. His energy level is good. Mental Status Examination: Patient presents as a calm, somewhat aloof male who is casually dressed and appropriately groomed. He wears a ponytail and glasses. His thoughts are logical and coherent. He reports ongoing depression. He is somewhat sarcastic and cynical. He is not actively suicidal. He is cognitively intact. Diagnoses: [] [place] I: Persistent depressive disorder, generalized anxiety disorder, PTSD, insomnia, alcohol abuse [place] II:Borderline Personality disorder [place] III: [] Nicotine dependence Plan: He will continue in the partial hospitalization program. We will look into ECT treatments through the [facility] system. The patient prefers to discuss medication issues with his outpatient nurse practitioner. I will see him again as needed.
--- NOTE | 2018-05-08 09:05 | BH.SGPN.GN ---
Behaviors/Verbalizations/Mental Status: []Client alert and oriented, disheveled appearance, hygiene good. Eye contact fair. Motor activity appropriate. Speech within normal limits. Affect constricted, mood dysthymic. Thoughts linear, logical, no signs of hallucinations or delusions. Reviewed client?s symptom tracker, no risk for suicidal ideation, plan, or intent as of 05/08/17. Client Response/Progress/Benefit: []Client responded well to session, appeared to be engaged through eye contact and nodding. Client reports feeling ?out of it and tired? today as he shared ongoing exhaustion and low energy. However, client stated he had a positive weekend as client spent time outdoors hiking with a friend. Client reported ?we had good conversation? and client stated he enjoyed being in outside again. Client stated he is hoping that spring is coming and the ?weather will break? because client?s mood improves when he can be outdoors. Client able to see progress as he has not been social with a friend for a while. Client acknowledge that being active and social was helpful and improved his mood. Client appeared to benefit from reflecting on his mental health wins over the weekend. Progress noted as client is showing strides to reduce isolation and be more physically active to manage his mental health symptoms. Client to continue PHP as he can continue to benefit from reinforcing healthy coping skills and challenging negative thoughts.
--- NOTE | 2018-05-08 10:12 | BH.SGPN.GN ---
Behaviors/Verbalizations/Mental Status: [Eye contact is fair to good. Motor activity is appropriate. Appearance is casual, disheveled. Speech is Appropriate. Mood is depressed. Affect is constricted. Thoughts are linear and logical. No evidence of psychosis. ] Client Response/Progress/Benefit: [Pt was an engaged participant in activity as evidenced by pt actively working with peers, following direction, and attentively listened to others. Group worked together to come up with common negative forces in their lives which can hold them back from growth. Negative forces included: toxic relationships, negative thoughts, low motivation, and past experiences. Group then worked together to identify common positive forces which help us grow. These included: Healthy coping skills, positive support, self-care, patience, and therapy. Pt reported that it can be difficult to identify positive forces when they feel outnumbered by the negative. Pt was attentive during psychoeducation on the importance of utilizing many aspects of positive forces to help one grow. Benefited from group with increased insight and awareness on the impact of negative and positive forces on mental wellness.] Narrative Note: []
--- NOTE | 2018-05-08 11:18 | BH.SGPN.GN ---
Behaviors/Verbalizations/Mental Status: [] Pt eye contact fair, disheveled in appearance, motor activity appropriate, speech normal rate and tone, mood dysthymic, constricted affect, thoughts linear and intact, no evidence of delusions or hallucinations. Client Response/Progress/Benefit: []Client listened attentively to peers and contributed thoughts and ideas to discussion. Client identified positive forces that help him progress toward goals to include: family, friends, desire to change, cats, and spirituality. Client identified negative forces that hold him back from progress to include: alcohol, lack of direction, lack of consistency, and friends that live near him. Client stated his cats are the strongest positive force pushing him to get better. Client seemed to benefit from increased awareness of his personal positive and negative forces in life. Client to continue PHP level of care to decrease anxiety, decrease intrusive thoughts and prevent decompensation. Narrative Note: []
--- NOTE | 2018-05-09 09:25 | BH.COMM ---
Communication Note - Communication with Client Communication Note: Due to inclement weather pt was stuck in his driveway and unable to attend IOP today.
--- NOTE | 2018-05-10 10:10 | BH.SGPN.GN ---
Behaviors/Verbalizations/Mental Status: []Client alert and oriented, disheveled appearance, hygiene fair. Eye contact fair. Motor activity appropriate. Speech soft. Affect flat, mood dysthymic. Thoughts linear, logical, no signs of hallucinations or delusions. Client Response/Progress/Benefit: []Client responded somewhat well to session, quiet, but contributing to discussion at times. Client connected with the topic of social supports, and he agreed with peers that having social support is important for increasing mental wellness. Client identified benefits of social support to be getting new perspective and having someone to listen. Client shared barriers to seeking support can include limited supports, isolation, judgmental people, and labeling. Client was engaged during the group activity. Client was able to recognize that for the group to be successful, all the supports had to be working together and balanced. The group connected this back to having balanced support in their lives. Client appeared to benefit from gaining awareness of the barriers keeping him from seeking social support. Progress noted in client?s reduced suicidal ideation, but he can continue to benefit from PHP to reinforce healthy coping skills.
--- NOTE | 2018-05-10 11:15 | BH.SGPN.GN ---
Behaviors/Verbalizations/Mental Status: [Pt eye contact fair, casually dressed, motor activity appropriate, speech normal rate and tone, mood apathetic, congruent affect, thoughts linear and intact, no evidence of delusions or hallucinations] Client Response/Progress/Benefit: [Client receptive of session, provided minimal input to discussion though able to remain an active listener AEB taking notes and providing some input. Client listening as the group reflected on connections between barriers faced and supports used in the challenge activity with utilizing social supports in daily life. Shared connecting with insights made by fellow participants regarding needing to focus and take things slowly when trying to communicate needs with supports. Client indicated connecting to the personal barriers discussed by the group in using supports, however declined to share own personal barriers. Client attentive throughout discussion about the different types of support and benefits different types of support can provide. Client able to connect with strategies identified by group for improving development of new supports and better utilization of current supports. Client seemed to benefit from identifying a type of support he would like to improve upon and creating actionable steps to promote follow-through. Client to continue PHP level of care to prevent decompensation, as well as continue to promote use of distress tolerance and emotion regulation skills] Narrative Note: []
--- NOTE | 2018-05-10 14:33 | BH.MDN_ITS ---
Multi-Disciplinary Note - Note 30-min Individual Time Started:: 11:15 Date: 05/10/18 Purpose of session/treatment goals addressed:: The purpose of this session was to review client's progress, provide closure to treatment, and review strategies that will promote mood stability and gains made in PHP. Another goal was to discuss aftercare and discharge recommendations. Eye Contact:: Good Motor Activity:: Appropriate Appearance:: Disheveled Speech:: Appropriate Mood:: Other - agitated Affect:: Congruent - appropriate to topics being discussed Thoughts:: Linear, Logical, No evidence of hallucinations/delusions noted Staff Interventions:: Therapist used open-ended questions to explore client's thoughts on personal progress. Therapist reviewed strategies, warning signs, and coping skills with client to promote gains and prevent setbacks. Therapist discussed aftercare plan with client and used strengths-perspective to empower client on the goals client accomplished. Therapist gave client a quote collage for closure and had client complete the IOP surveys. Client Response:: Client responded well to session, open to meeting with therapist. At first, client had a difficult time identifying personal progress made in PHP, but with therapist elicitation, client recognized several areas of growth. Client shared his progress included: less isolation, more cleaning at home, reduced suicidal thoughts, less self-harm, reduced drinking, and increased hopefulness. Client shared he called [facility] and set up an intake appointment for ECT which client is looking forward to. Client stated he is still interested starting trauma therapy, but he wants to wait until he gets my shit together. When asked what this meant client shared it means having a more structed routine and more consistent healthy habits. Client and therapist discussed maintenance strategies as well as using delay techniques to continue improving client's impulse control, reduce drinking, and better manage emotions. Client shared these techniques have been the most helpful as client recognizes if he gives himself more time or distance from a situation, he is more likely to choose a healthy decision. Client reported he plans to continue with his individual therapist at [facility], but he needs to save up a week or two of pay before he can schedule another session. Client receptive to therapist's encouragement of ongoing consistent mental health treatment to prevent setbacks and promote gains made in PHP. Risks/Concerns:: Client denies any active suicidal ideation, plan, and intent as of 05/10/18. Client reports his suicidal ideation has reduced since starting PHP and he reports he is now more hopeful. Progress Toward Goals/Plan:: Client recognizes progress since starting PHP as shown by his reduced suicidal ideation, self-harm, and isolation. Client also notes progress in increased mood stability and management of his symptoms. Client continues to endorse depressive symptoms, anxiety, and PTSD, but per his report, he feels more even keeled. Client has begun to return to doing things he used to enjoy and reports being hopeful about ECT and his future. Client to discharge from [facility] tomorrow. Client can benefit from one final group day to reinforce healthy coping skills and review aftercare plan. Time Stopped:: 11:45
--- NOTE | 2018-05-11 08:20 | BH.AFTERPLAN ---
Aftercare Plan - Demographics Treatment End Date:: 05/11/18 Psychiatrist:: Darius Oviedo Psychiatrist Office #:: [phone] [facility] Therapist:: Aminah Michel Therapist Phone #:: [phone] - Medications Home Medications: Home Medications Multivitamin [Multivitamins] 1 each PO DAILY 04/12/18 Lurasidone HCl [Latuda] 20 mg PO DAILY 04/20/18 - Plan Details Progress/Aftercare Plan Details:: Chito, congratulations on completing the program! You have shown great strides from beginning to end in [facility]. You have shown progress by getting back to doing things you have enjoyed like yoga, hiking, and cooking. You have also worked hard to use opposite action and small goals to break out of depressive maintenance cycles. You have been able to keep your kitchen clean and accomplish daily goals. You had several stressors happen during your time here, but none of those resulted in huge setbacks which shows progress. You have recently reached out and spent time with a friend, your sister and her children, and visited your brother whereas before you isolated. Your suicidal ideations and self-harming have decreased which is significant! You shared feeling hopeful about the future again because of ECT, building support networks, and getting involved in things you find purposeful. There are still things you want to work on, but you recognize that reducing or cutting back on certain behaviors right now demonstrates progress. Your emotional regulation has improved from start to finish and you are more conscientious about your behaviors and the positive or negative consequences. You have been able to use grounding and mindfulness strategies to help yourself stay present and you have been a great group member. Congratulations! Strategies for Success:: 1. Try to do one active thing each day- to break out of a negative maintenance cycle. OPPOSITE ACTION! 2. Self-awareness is canales! Continue to be aware of your triggers, warning signs, thoughts, emotions, and behaviors. Recognize when your thoughts need challenging, emotions need taken care of, and behaviors need changed. 3. SUPPORT! I know it is not easy, but try to reach out to one person a day. Talk on the phone, play pool, hike, cook, volunteer. 4. DELAY, DISTRACT, DECIDE! For controlling impulse, delay yourself. Give yourself time, distance, or other barriers to make it harder to engage in those impulse behaviors. 5. Focus on one step at a time- baby steps- and remember to acknowledge your mental health wins. 6. Use grounding and mindfulness. Pet your cats, listen to music, meditate, breathe, apps, hiking, 5-senses, you name it! 7. Maintain healthy boundaries. 8. Remember change takes time and to be compassionate with yourself. 9. Challenge negative thoughts and journal. 10. Make time to do the things that give you purpose such as cooking, martial arts, and hiking. - Appointments Appointments/Referrals to Other Services:: 1. Follow up with your nurse practitioner at [facility] last appointment was 05/10/18. 2. Follow up with Iliana Hanson for individual counseling- call and schedule 3. ECT intake appointment on May 31. 4. Look into scheduling trauma-focused therapy- either at [facility] in [place] (Anali Hopper) [phone] or with Ming Swartz in [place] .
--- NOTE | 2018-05-11 08:27 | BH.IGGP_ITS ---
Aftercare Plan - Demographics Treatment End Date:: 05/11/18 Psychiatrist:: Darius Oviedo Psychiatrist Office #:: [phone] [facility] Therapist:: Aminah Michel Therapist Phone #:: [phone] - Medications Home Medications: Home Medications Multivitamin [Multivitamins] 1 each PO DAILY 04/12/18 Lurasidone HCl [Latuda] 20 mg PO DAILY 04/20/18 - Plan Details Progress/Aftercare Plan Details:: Chito, congratulations on completing the program! You have shown great strides from beginning to end in [facility]. You have shown progress by getting back to doing things you have enjoyed like yoga, hiking, and cooking. You have also worked hard to use opposite action and small goals to break out of depressive maintenance cycles. You have been able to keep your kitchen clean and accomplish daily goals. You had several stressors happen during your time here, but none of those resulted in huge setbacks which shows progress. You have recently reached out and spent time with a friend, your sister and her children, and visited your brother whereas before you isolated. Your suicidal ideations and self-harming have decreased which is significant! You shared feeling hopeful about the future again because of ECT, building support networks, and getting involved in things you find purposeful. There are still things you want to work on, but you recognize that reducing or cutting back on certain behaviors right now demonstrates progress. Your emotional regulation has improved from start to finish and you are more conscientious about your behaviors and the positive or negative consequences. You have been able to use grounding and mindfulness strategies to help yourself stay present and you have been a great group member. Congratulations! Strategies for Success:: 1. Try to do one active thing each day- to break out of a negative maintenance cycle. OPPOSITE ACTION! 2. Self-awareness is canales! Continue to be aware of your triggers, warning signs, thoughts, emotions, and behaviors. Recognize when your thoughts need challenging, emotions need taken care of, and behaviors need changed. 3. SUPPORT! I know it is not easy, but try to reach out to one person a day. Talk on the phone, play pool, hike, cook, volunteer. 4. DELAY, DISTRACT, DECIDE! For controlling impulse, delay yourself. Give yourself time, distance, or other barriers to make it harder to engage in those impulse behaviors. 5. Focus on one step at a time- baby steps- and remember to acknowledge your mental health wins. 6. Use grounding and mindfulness. Pet your cats, listen to music, meditate, breathe, apps, hiking, 5- senses, you name it! 7. Maintain healthy boundaries. 8. Remember change takes time and to be compassionate with yourself. 9. Challenge negative thoughts and journal. 10. Make time to do the things that give you purpose such as cooking, martial arts, and hiking. - Appointments Appointments/Referrals to Other Services:: 1. Follow up with your nurse practitioner at [facility] last appointment was 05/10/18. 2. Follow up with Iliana Hanson for individual counseling- call and schedule 3. ECT intake appointment on May 31. 4. Look into scheduling trauma-focused therapy- either at [facility] in [place] (Anali Hopper) [phone] or with Ming Swartz in [place] .
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
--- NOTE | 2018-05-11 10:12 | BH.SGPN.GN ---
Behaviors/Verbalizations/Mental Status: [Client alert and oriented, casually dressed and groomed, disheveled. Eye contact fair to good. Motor activity appropriate. Speech within normal limits. Affect constricted, mood anxious, dysthymic. Thoughts linear, logical, no signs of hallucinations or delusions. ] Client Response/Progress/Benefit: [Client responded well to session, passive though attentive during discussion. Client connected with the group topic of crisis and did well to work with group to define crisis. Group identified examples of potential crisis to include unexpected loss, overwhelming stress, and hardships out of one?s control. Pt noted connecting with personal examples shared. Connected with discussion on how coping with crisis by using unhealthy coping skills could lead to additional personal crisis. Client shared personal crisis occurs when we feel trapped or as though there is no other option. Group identified unhealthy coping skills to include; substance use, toxic relationships, overeating, avoidance, anger, and giving up. Group identified warning signs for crisis which included; isolating, increased anxiety, avoidance, agitation, minimizing, and impatience. Client completed the personal warning signs worksheet and identified crisis warning signs to include; negative thinking, avoidance, self-harming, isolating, and apathy. Benefited from group by increasing awareness of crisis and personal warning signs. Progress noted as client displaying increased levels of engagement. Recommended continued tx to improve skill application and reduce sx severity.] Narrative Note: []
--- NOTE | 2018-05-11 14:10 | BH.DS ---
Discharge Summary - Demographics Date of Admission:: 04/10/18 Discharge Date: 05/11/18 Presenting Problems at Admission:: Client is a 27-year-old male who was referred to [facility] by his outpatient therapist due to worsening depression and fleeting suicidal ideation. Client presents with a history of bipolar, PTSD, AMERICO, and Borderline Personality disorder. At admission, client reported his symptoms had become worse over the past several months due to recent move, new job, isolation, and lack of social supports. Client has a history of multiple previous psychiatric admissions for suicidal ideation and suicide attempts with his most recent hospitalization being two years ago. At admission, client reported having chronic suicidal ideation and a history of self-injurious behaviors of cutting which he reports doing a week prior to starting IOP. At admission, client endorsed lack of motivation, anhedonia, self-loathing, lack of energy, erratic sleep, nightmares, hopelessness, and ruminations. Client also reported avoidant behaviors and isolation. Client?s symptoms impacted his ability to function at his baseline and his overall quality of life. Discharge Diagnoses:: Persistent depressive disorder F 34.1; generalized anxiety disorder; PTSD; Borderline personality disorder; alcohol abuse Reason for Discharge:: Client has demonstrated progress and met his treatment goals. Client no longer meets criteria for [facility]) level of care. - Treatment Progress During Treatment & Response: Client responded well to [facility] treatment as shown by his reduced DSM-5 cross-cutting scores, his reduced isolation, and self-report of increased hopefulness. Client?s overall response to individual session was positive as client was often engaged during sessions. However, client did struggle with consistent application of healthy coping skills at times. Client showed progress by getting back to doing things he once enjoyed like yoga, hiking, and cooking. Additionally, client used opposite action and small goals to break out of depressive maintenance cycles and increase socialization. In the group setting client was often quiet due to self-reported fear of saying something wrong or being judged. Client was active during activities in group sessions and near the end of his treatment he became more vocal. Client?s DSM-5 cross-cutting symptoms reduced from an overall score of 55 at admission to 31 at discharge. Client?s scores for anxiety, depression, and suicidal ideation all decreased. At admission client scored 8 out of 8 for depression, 8 out of 12 for anxiety, and 3 out of 4 for suicidal ideation. At discharge client score 3 out of 8 for depression, 2 out of 12 for anxiety, and 0 out of 4 for suicidal ideation which demonstrates significant progress. Client also reported increased self-awareness and emotional regulation associated with impulsive behaviors. Lastly, client was able to reported numerous healthy coping skills and shared he had reduced self-harming behaviors. Issues Still to be Addressed:: Client made progress on his treatment goals while in [facility] but he can continue to benefit from ongoing work to regulate emotions, reduce impulsive behaviors, and better manage symptoms. Client reduced his drinking during his time in [facility] but shared he wants to stop drinking in the evenings as it exacerbates depressive symptoms. Client can also continue to work on challenging negative core beliefs and increasing positive supports. Client recognizes that relationships have been difficult for him in the past, but he wants to work on being closer with people again. Client was beginning to become more social near discharge, and he can benefit from maintaining a behavioral activation routine. Client often reported feeling disconnected and has a history of self-harming. Although client is not currently self-harming, he can continue to be aware of this and implement strategies to prevent decompensation. Client acknowledges that he has never fully dealt with his trauma and recognizes he could benefit from trauma-focused therapy in the future. Discharge Recommendations/Instructions:: Client was encouraged to follow up with his outpatient providers for ongoing medication management and individual counseling services. Client reports plan to continue seeing his nurse practitioner at [facility] in [place]. Client did not know his provider?s name, but his last appointment was on 05/10/18. Client reports plan to follow up with Iliana Hanson at [facility] for individual therapy. Client shared he plans to call next week and set up an appointment for two weeks from now. Client was encouraged to schedule sooner, but client shared financially it would be best for him to wait a week. Client has an ECT intake appointment on 05/31/18 at [facility] with Dr. Dixon. Client was also provided information for therapists specializing in trauma therapy for when client feels ready to begin working on his trauma. Discharge Handout: Complete Discharge Handout with client on aftercare options and continuity of care.
--- NOTE | 2018-05-11 14:19 | BH.DS_ITS ---
Discharge Summary - Demographics Date of Admission:: 04/10/18 Discharge Date: 05/11/18 Presenting Problems at Admission:: Client is a 27-year-old male who was referred to [facility] by his outpatient therapist due to worsening depression and fleeting suicidal ideation. Client presents with a history of bipolar, PTSD, AMERICO, and Borderline Personality disorder. At admission, client reported his symptoms had become worse over the past several months due to recent move, new job, isolation, and lack of social supports. Client has a history of multiple previous psychiatric admissions for suicidal ideation and suicide attempts with his most recent hospitalization being two years ago. At admission, client reported having chronic suicidal ideation and a history of self-injurious behaviors of cutting which he reports doing a week prior to starting IOP. At admission, client endorsed lack of motivation, anhedonia, self-loathing, lack of energy, erratic sleep, nightmares, hopelessness, and ruminations. Client also reported avoidant behaviors and isolation. Client?s symptoms impacted his ability to function at his baseline and his overall quality of life. Discharge Diagnoses:: Persistent depressive disorder F 34.1; generalized anxiety disorder; PTSD; Borderline personality disorder; alcohol abuse Reason for Discharge:: Client has demonstrated progress and met his treatment goals. Client no longer meets criteria for [facility] level of care. - Treatment Progress During Treatment & Response: Client responded well to [facility] treatment as shown by his reduced DSM-5 cross-cutting scores, his reduced isolation, and self-report of increased hopefulness. Client?s overall response to individual session was positive as client was often engaged during sessions. However, client did struggle with consistent application of healthy coping skills at times. Client showed progress by getting back to doing things he once enjoyed like yoga, hiking, and cooking. Additionally, client used opposite action and small goals to break out of depressive maintenance cycles and increase socialization. In the group setting client was often quiet due to self-reported fear of saying something wrong or being judged. Client was active during activities in group sessions and near the end of his treatment he became more vocal. Client?s DSM-5 cross-cutting symptoms reduced from an overall score of 55 at admission to 31 at discharge. Client?s scores for anxiety, depression, and suicidal ideation all decreased. At admission client scored 8 out of 8 for depression, 8 out of 12 for anxiety, and 3 out of 4 for suicidal ideation. At discharge client score 3 out of 8 for depression, 2 out of 12 for anxiety, and 0 out of 4 for suicidal ideation which demonstrates significant progress. Client also reported increased self-awareness and emotional regulation associated with impulsive behaviors. Lastly, client was able to reported numerous healthy coping skills and shared he had reduced self-harming behaviors. Issues Still to be Addressed:: Client made progress on his treatment goals while in [facility], but he can continue to benefit from ongoing work to regulate emotions, reduce impulsive behaviors, and better manage symptoms. Client reduced his drinking during his time in [facility], but shared he wants to stop drinking in the evenings as it exacerbates depressive symptoms. Client can also continue to work on challenging negative core beliefs and increasing positive supports. Client recognizes that relationships have been difficult for him in the past, but he wants to work on being closer with people again. Client was beginning to become more social near discharge, and he can benefit from maintaining a behavioral activation routine. Client often reported feeling disconnected and has a history of self-harming. Although client is not currently self-harming, he can continue to be aware of this and implement strategies to prevent decompensation. Client acknowledges that he has never fully dealt with his trauma and recognizes he could benefit from trauma-focused therapy in the future. Discharge Recommendations/Instructions:: Client was encouraged to follow up with his outpatient providers for ongoing medication management and individual counseling services. Client reports plan to continue seeing his nurse practitioner at [facility] in [place]. Client did not know his provider?s name, but his last appointment was on 05/10/18. Client reports plan to follow up with Iliana Hanson at [facility] for individual therapy. Client shared he plans to call next week and set up an appointment for two weeks from now. Client was encouraged to schedule sooner, but client shared financially it would be best for him to wait a week. Client has an ECT intake appointment on 05/31/18 at [facility] with Dr. Dixon. Client was also provided information for therapists specializing in trauma therapy for when client feels ready to begin working on his trauma. Discharge Handout: Complete Discharge Handout with client on aftercare options and continuity of care.
--- NOTE | 2018-05-15 14:47 | BH.MTP_ITS ---
Treatment Plan Review Date of Admission:: 04/10/18 Date of Treatment Plan Review:: 05/10/18 Admitting Diagnoses:: Persistent depressive disorder F 34.1; generalized anxiety disorder; PTSD; Borderline personality disorder; alcohol abuse Current Diagnoses:: Persistent depressive disorder F 34.1; generalized anxiety disorder; PTSD; Borderline personality disorder; alcohol abuse Patient's Response to Treatment:: Client responded well to PHP treatment as shown by his reduced DSM-5 cross-cutting scores, his reduced isolation, and self-report of increased hopefulness. Although client's mood improved, his emotions and thoughts continue to be directly impacted by external events and interpersonal relationships. As a result, client struggles at times with mood stability when faced with conflict or difficult situations. Client?s overall response to individual session was positive as client was often engaged during sessions. However, client did struggle with consistent application of healthy coping skills and follow through with homework. Client showed progress by getting back to doing things he once enjoyed like yoga, hiking, and cooking to help client break out of depressive maintenance cycles. Client did well with setting and accomplishing small goals. Client continues to struggle with challenging negative thinking without external support. In the group setting, client was mostly quiet, due to self-reported fear of saying something wrong or being judged. This may have impacted his ability to practice in the moment coping skills to reduce anxiety and make social connections. Status of Current Problems and Symptoms: Client continues to report ongoing PTSD symptoms, especially at night. Client experiences nightmares, hypervigilance, and somatic symptoms. Additionally, client states ongoing depressive symptoms of reduced intensity, low energy, low motivation, feelings of disconnect, and negative thinking. Client also reports ongoing interpersonal relationship issues with his mother, brother, and sister that impacts client's mental health. Client has improved with reducing impulsive behaviors and increase mood stability, but he continues to struggle with implementing healthy coping skills in the moment. Client continues to drink in the evenings, but he reports the quantity has reduced. Although client currently is not cutting or reporting suicidal ideation, he has a long-term history of these and can continue to monitor. Problem #1 Problem Name:: Pt. will reduce depressive symptoms, suicidal thoughts, and anhedonia Status of Goals:: Objective 1- partially accomplished. Client reports reduced suicidal thinking and isolation. However, client continues to struggle with challenging and replacing distorted thinking patterns that reinforce depressive symptoms and low self-esteem. Objective 2- accomplished. Per client?s report, he has spent time outdoors hiking, hung out with friends, gone out to play pool, and spent time with family. Client?s DSM-5 symptoms have also decreased for depression. At admission, client scored 8 out of 8 for depression and at review/discharge, client scored 3 out of 8. Client also reduced his DSM-5 scores for suicidal ideation. Client went from a score of 3 out of 4 to 0 out of 4 for suicidal ideation. As mentioned above, client's symptoms and mood are closely related to external events and relationships. Right now, client is hopeful about upcoming events, which may be the reason for his reduced symptoms. Team Recommendations:: Client to discharge from [facility] and follow up with individual counseling and ECT therapy. Client was encouraged to continue working on this treatment goal as he can further reduced depression and anhedonia. Client currently reports no suicidal thoughts, which is significant progress, but he can benefit from maintenance of healthy coping and supports to prevent decompensation. Problem #2 Problem Name:: Pt. will reduce overall frequency, intensity, and duration of anxiety Status of Goals:: Objective 1- accomplished. Client can identify triggers for anxiety and trauma and his DSM-5 scores have reduced for anxiety. At admission, client scored 8 out 12 for anxiety and at review/discharge client scored 2 out 12 for anxiety. As mentioned above, client's symptoms and mood are closely related to external events and relationships. Right now, client is hopeful about upcoming events, which may be the reason for his reduced symptoms. Objective 2- accomplished. Client can identify common stress reactions to trauma and has learned coping skills to manage triggers. Client would like to continue to increase distress tolerance. Team Recommendations:: Client to discharge from [facility] and follow up with individual counseling and ECT therapy. Client was encouraged to continue working on this treatment goal as he can further increase awareness of anxiety and trauma triggers and practice healthy coping skills. Client reported being more open to the idea of individual trauma therapy and was encouraged by therapist to follow up with this service. Problem #3 Problem Name:: Pt. will increase coping skills to manage impulsiveness and relationships Status of Goals:: Client has accomplished this goal as he can identify triggers for mood impulsive behavior and mood dysregulation including stress and arguments. Per client's report, he has only cut one time since starting IOP which is progress as he had been cutting on a weekly basis. Client also reports reduced drinking in the evenings and using delaying techniques to prevent impulsive behaviors. Team Recommendations:: Client to discharge from [facility] and follow up with individual counseling and ECT therapy. Client was encouraged to continue working on this treatment goal as he can further increase mood stability and reduce impulsive behaviors.
== END 2018-05-17 23:59 ==
LOC: BHPHP 09:00
PROVIDERS: Referring Provider Psychiatry & Neurology Psychiatry; Visit Provider Psychiatry & Neurology Psychiatry
DX: F34.1 Dysthymic disorder (principal); F41.1 Generalized anxiety disorder; F43.10 Post-traumatic stress disorder, unspecified; F60.3 Borderline personality disorder; F10.20 Alcohol dependence, uncomplicated
CPT/HCPCS: H0035; 90832; 90834; 90837; G0410

== ENCOUNTER → 2018-07-16 15:35 | Outpatient (CLI) | payer MEDICARE, SELFPAY ==
--- NOTE | 2018-07-16 15:49 | EKG12_ITS ---
Test Reason : DIZZINESS ROUTINE Blood Pressure : / mmHG Vent. Rate : 064 BPM Atrial Rate : 064 BPM P-R Int : 136 ms QRS Dur : 096 ms QT Int : 388 ms P-R-T Axes : 027 076 059 degrees QTc Int : 400 ms Normal sinus rhythm ICRBBB Confirmed by JENISE FERRARI, YAMILA ([id number]), desk editor JADE DELUNA ([id number]) on 07/19/2018 9:01:57 AM Referred By: Naye Cabrera Confirmed By:YAMILA BURDEN MD
[2018-07-16 17:59] LABS: Hematocrit 42.3 % (40-54); Hemoglobin 13.8 g/dl (13.0-16.5); Mean Corp Hgb Conc 32.6 g/gl (32-36); Mean Corpuscular Hgb 31.1 pg (27.0-32.0); Mean Corpuscular Volume 95.3 fL (80-94); Mean Platelet Vol. 10.8 fl (6.2-12.0); POSITIVE COUNT NO; POSITIVE DIFFERENTIAL NO; POSITIVE MORPHOLOGY NO; Platelet Count 230 K/mm3 (150-450); RBC Distribution Width CV 12.6 % (11.6-14.6); RBC Distribution Width SD 43.6 fl (35.1-43.9); Red Blood Count 4.44 M/mm3 (4.6-6.2); White Blood Count 7.7 K/mm3 (4.4-11.0)
[2018-07-16 18:00] LABS: Absolute Neutrophil Count 3.7 X10^3/uL (2.0-7.7); Basophil# 0.01 X10^3/uL; Basophil% 0.1 % (0-1); Eosinophils% 3.9 % (0-5); Lymphocyte % 41.5 % (19-41); Monocyte% 6.5 % (0-10); Neutrophil # 3.69 X10^3/uL (2.7-7.7); Neutrophil % 47.7 % (47-70)
[2018-07-16 18:06] LABS: ALB/GLOB Ratio 1.4 RATIO (0.9-2.4); AST(SGOT) 20 U/L (15-37); Alanine Aminotransfer ALT/SGPT 24 U/L (16-61); Alkaline Phosphatase 60 U/L (45-117); Anion Gap 6 (5-15); BUN 13 mg/dL (7-18); BUN/Creat Ratio 12.5 RATIO (10-20); Calcium,Total 8.8 mg/dL (8.5-10.1); Chloride 105 mmol/L (98-107); Creatinine, Serum 1.04 mg/dL (0.70-1.30); EST Glomerular Filtration Rate 89 mL/min (>60); Est Glom Filt Rate - Afr Amer 108 mL/min (>60); Globulin 2.9 g/dL (2.2-4.2); Glucose 82 mg/dL (74-106); Protein, Total 6.9 g/dL (6.4-8.2); Sodium Level 142 mmol/L (136-145); T4 Free Direct 0.71 ng/dL (0.76-1.46); Thyroid Stim Hormone (TSH) 0.76 uIU/mL (0.358-3.74)
== END ==
PROVIDERS: Referring Provider Physician Assistant; Visit Provider Physician Assistant
DX: R42 Dizziness and giddiness (principal); Z79.899 Other long term (current) drug therapy
CPT/HCPCS: 36415; 80053; 84439; 84443; 85025; 93005

== ENCOUNTER 2022-03-23 07:41 | Emergency (ER) | payer OTHER, SELFPAY ==
[2022-03-23 07:42] VITALS: BP 124/78; PULSE 82; RESP 14; TEMP 36.2; O2SAT 100; BMI 20.5
--- NOTE | 2022-03-23 08:06 | EKG12_ITS ---
Test Reason : CHEST PAIN Blood Pressure : / mmHG Vent. Rate : 060 BPM Atrial Rate : 060 BPM P-R Int : 138 ms QRS Dur : 096 ms QT Int : 416 ms P-R-T Axes : 030 073 050 degrees QTc Int : 416 ms Sinus rhythm with occasional Premature ventricular complexes Incomplete right bundle branch block Borderline ECG Confirmed by LAILA FERRARI, LOKI ([id number]), supervising editor news reel JADE DELUAN ([id number]) on 03/25/2022 6:24:12 AM Referred By: TATY Confirmed By:SUZAN ULLOA MD
--- NOTE | 2022-03-23 08:06 | CT_ITS ---
STUDY: CT BRAIN WITHOUT CONTRAST REASON FOR EXAM: Male, 31 years old. Vertigo RADIATION DOSAGE (If Supplied By Facility): CTDIvol = ( 44.99 ) mGy, DLP = ( 829.85 ) mGycm TECHNIQUE: Transaxial CT imaging of the brain was performed without administration of intravenous contrast material. Individualized dose optimization techniques were used for this CT. COMPARISON: No relevant priors. FINDINGS: Normal soft tissue structures. Normal calvarium. Normal size ventricles and extra-axial spaces for the patient''s age. Normal white matter tracts of the cerebral hemispheres. Normal basal ganglia and thalami. Normal brainstem. Normal cerebellum. There is no intracranial hemorrhage. There are no findings of an acute ischemic infarction. Normal visualized paranasal sinuses. Nasal septal deviation towards the left side of the midline. CT/Brain/Head without Contrast IMPRESSION: Normal unenhanced CT scan of the brain. Electronically Signed: Delvis Barone MD at 9:00 EST ,
--- NOTE | 2022-03-23 08:07 | ED.VIS.CHEST ---
HPI History of Present Illness Chief Complaint: Chest Pain Detail of Chief Complaint: dizziness Informant: patient Onset/Context/Timing Onset: Weeks (3) Activity at onset: sudden, onset, activity on onset and - (position changes especially standing up from sitting) Timing: Intermittent and Lasts (minutes) Narrative Narrative: Patient presenting with several symptoms. 1 is dizziness that feels like a sensation of movement but not trish spinning. He gets it when he stands up. He also has had left-sided chest discomfort at 1 particular point which she can identify with his finger without radiation, nonpleuritic, nonexertional, has not changed with anything that he can think of, is fairly constant for the past 2 or 3 weeks and amount of time as he has had the dizziness symptoms. He does admit to some ringing in his ears on occasion he cannot remember which one it is not present right now and he currently does not feel dizzy while sitting and resting here. He has this constant buzzing in his head, stating it feels kind of foggy and states it is difficult to explain but it will not go away even though the dizziness is intermittent. Denies any vision changes. Sometimes he walks and is off balance. He denies any nausea or vomiting. No recent URI, ear pain, changes in his hearing. No dyspnea, no history of DVT or PE, no recent travel out of the area, hospitalization, immobilization, or surgery. He does not take any type of hormones, he takes mental health medication and that is it. He has had no cough or fever or hemoptysis. [facility] Medical History Tobacco dependence due to cigarettes Medical History no medical history Home Medications meclizine 25 mg tablet 25 mg PO Q8H PRN PRN Dizziness #20 tabs 03/23/22 [Rx Last Taken Unknown] Allergy/AdvReac Type Severity Reaction Status Date / Time No Known Allergies Allergy Verified 03/23/22 07:42 Family History (Updated 04/12/18 @ 14:26 by VIVIANA Reed) Mother Drug abuse Bipolar 1 disorder Social History Smoking Status: Never smoker ROS ROS ED Constitutional Constitutional ED: Denies chills or fever(s) Eyes Eyes: Denies change in vision or diplopia ENT ENT ED: Reports as per HPI, tinnitus and vertigo; Denies rhinorrhea, sore throat or throat swelling Cardiovascular Cardiovascular: Reports as per HPI and chest pain; Denies palpitations Respiratory/Chest Respiratory/Chest: Denies cough or dyspnea Gastrointestinal Gastrointestinal: Denies abdominal pain, diarrhea, nausea or vomiting Genitourinary Genitourinary ED: Denies dysuria or hematuria Musculoskeletal Musculoskeletal: Denies back pain or neck pain Integumentary Denies abscess or rash Neurologic Neurologic: Reports as per HPI, abnormal gait and headache(s); Denies paresthesias or weakness Psychiatric Psychiatric: Denies anxiety or suicidal thoughts EXAM Physical Exam Const Vital Signs: 03/23/22 07:42 03/23/22 08:04 Temperature 97.1 F L Temperature Source Temporal Pulse Rate 82 Respiratory Rate 14 Respiratory Pattern Normal Blood Pressure 124/78 H Blood Pressure Mean 93 Pulse Ox 100 Oxygen Delivery Method Room Air Positive well nourished and well developed General Appearance ED: well developed and NAD HEENT Reports TM's clear and moist mucous membranes normocephalic and atraumatic Tympanic Membrane ED: Yes TM's clear Eyes PERRL and EOMs intact bilaterally Eyes Narrative: Fatigable horizontal nystagmus, no pathologic/nonfatigable or vertical/rotatory nystagmus. Neck full ROM and supple Chest Wall inspection of chest normal and palpation of chest normal Chest: Negative for tenderness Resp normal respiratory effort and clear to auscultation bilaterally Cardio regular rate, regular rhythm and no murmurs GI non-tender and non-distended Auscultation: normoactive bowel sounds Palpation: soft Back/Spine no CVA tenderness General Back: other FROM Extremity normal to inspection General Extremety ED: Negative for edema, pulses abnormal or tenderness General Extremity: Negative for edema or pulses abnormal Neuro oriented x3, CN's II-XII intact bilaterally and no sensory deficits noted Neuro Narrative: Normal gwbljp-or-hkwx and fqpy-mp-wibl bilaterally. Normal Romberg. Sensorium / Orientation: awake and alert Motor Exam: strength 5/5 throughout Skin no rashes or lesions noted and no wounds MDM MDM MDM Narrative Medical decision making narrative: I think this patient is having benign peripheral vertigo/disequilibrium. However since he has been having symptoms for 3 weeks and they are unchanged, I did a CT of the head, to evaluate for uncommon circumstances such as acoustic neuroma, cerebellar stroke, other unforeseen intracranial abnormalities. My interpretation of the CT agrees with that of the radiologist. It is unremarkable. His cardiac work-up and chest x-ray 2 views on my interpretation, negative/normal. At this time I have ruled out emergent medical problems, I do not think he needs work-up for PE further since his PERC score is 0. He is reassured, this likely will be self-limiting, if he goes the rest of the week without improvement I recommend follow-up with otolaryngology. We will prescribe him meclizine in the meantime, I did give him a GI cocktail for his chest discomfort which did not help it may be muscular. Lab Data Attestation: I reviewed the patient's lab results. Labs: Laboratory Results - last 24 hr 03/23/22 03/23/22 08:22 08:22 WBC 6.3 RBC 4.76 Hgb 14.0 Hct 43.3 MCV 91.0 MCH 29.4 MCHC 32.3 RDW Std Deviation 39.7 RDW Coeff of Nadeem 11.9 Plt Count 212 MPV 10.7 Immature Gran % (Auto) 0.300 Neut % (Auto) 55.4 Lymph % (Auto) 36.2 [place] % (Auto) 6.2 Eos % (Auto) 1.6 Baso % (Auto) 0.3 Absolute Neuts (auto) 3.5 Absolute Lymphs (auto) 2.28 Nucleated RBC % 0 Sodium 140 Potassium 4.1 Chloride 107 Carbon Dioxide 29.0 Anion Gap 4 L BUN 14 Creatinine 1.17 Estim Creat Clear Calc 92.22 Est GFR (MDRD) Af Amer 92 Est GFR (MDRD) Non-Af 76 BUN/Creatinine Ratio 12.0 Glucose 112 H Calcium 9.4 Troponin I High Sens 4 Radiography Diagnostic Testing: Clinical Impression(s) from Imaging Studies Brain CT 03/23/22 08:06 IMPRESSION: Normal unenhanced CT scan of the brain. Electronically Signed: Delvis Barone MD at 9:00 EST , Chest X-Ray 03/23/22 08:45 IMPRESSION: Hyperinflation. The lungs are clear. Electronically Signed: Delvis Barone MD at 9:01 EST , Rhythm Strip Rhythm Strip: Sinus Rhythm Rate: 60 Ectopy: None EKG Initial EKG: Attestation: I personally reviewed and interpreted this EKG as follows: Interpretation: Sinus Rhythm and No Acute Injury Pattern Comments: RSR' Prior EKG tracings: available for review Prior: Unchanged Discharge Plan Triage Chief Complaint: Chest Pain ED Provider: Hernando Baeza Dx/Rx/DC Orders Clinical Impression: Left-sided chest pain, Dysequilibrium, Tinnitus, Intermittent headache Instructions: ED Dizziness, Uncertain Cause Prescriptions: New meclizine [meclizine] 25 mg tablet 25 mg PO Q8H PRN PRN (Reason: Dizziness) Qty: 20 0RF Primary Care Provider: Geovanni Garg Referrals: Gary Garcias MD [Med Staff - Active Staff] - 1 Week if not improving Geovanni Garg MD [Primary Care Provider] - 1 Week if not improving Disposition Disposition: Home, Self Care
[2022-03-23 08:31] LABS: Absolute Lymphocyte Count 2.28 X10^3/uL (0.83-4.51); Absolute Neutrophil Count 3.5 X10^3/uL (2.0-7.7); Basophil# 0.02 X10^3/uL; Basophil% 0.3 % (0-1); Eosinophils% 1.6 % (0-5); Hematocrit 43.3 % (40-54); Lymphocyte # 2.28 X10^3/ul (0.83-4.51); Lymphocyte % 36.2 % (19-41); Mean Corp Hgb Conc 32.3 g/dL (32-36); Mean Corpuscular Hgb 29.4 pg (27.0-32.0); Mean Platelet Vol. 10.7 fl (6.2-12.0); Monocyte# 0.39 X10^3/uL; Monocyte% 6.2 % (0-10); NRBC Flagged by Analyzer 0 % (0-5); Neutrophil # 3.48 X10^3/uL (2.7-7.7); Neutrophil % 55.4 % (47-70); Platelet Count 212 K/mm3 (150-450); RBC Distribution Width CV 11.9 % (11.6-14.6); RBC Distribution Width SD 39.7 fl (35.1-43.9); Red Blood Count 4.76 M/mm3 (4.6-6.2); White Blood Count 6.3 K/mm3 (4.4-11.0)
[2022-03-23 08:44] LABS: Anion Gap 4 (5-15); BUN 14 mg/dL (7-18); Calcium,Total 9.4 mg/dL (8.5-10.1); Chloride 107 mmol/L (98-107); Creatinine, Serum 1.17 mg/dL (0.70-1.30); EST Glomerular Filtration Rate 76 mL/min (>60); Est Glom Filt Rate - Afr Amer 92 mL/min (>60); Estimated Creatinine Clearance 92.22 ml/min; Glucose 112 mg/dL (74-106); Potassium 4.1 mmol/L (3.5-5.1); Sodium Level 140 mmol/L (136-145); Troponin-I HS 4 pg/mL (3.0-78.0)
[2022-03-23] MEDS: Mag Hydrox/Al Hydrox/Simeth 30 ML UDC PO (08:45)
[2022-03-23] MEDS: Meclizine HCl 25 MG Tablet PO (08:45)
--- NOTE | 2022-03-23 08:45 | RAD_ITS ---
STUDY: X-RAY CHEST REASON FOR EXAM: Male, 31 years old. Left chest pain TECHNIQUE: PA and lateral views of the chest. COMPARISON: None. FINDINGS: Hyperinflation. The lungs are clear. There is no demonstrated pleural abnormality. Normal size heart. Normal mediastinum and amina. Normal visualized pulmonary arteries. Normal visualized aortic arch and descending thoracic aorta. Normal visualized thoracic spine. Normal visualized ribs, clavicles, and shoulders. There is no demonstrated abnormality of the visualized soft tissue structures of the upper abdomen. RAD/Chest PA and Lateral IMPRESSION: Hyperinflation. The lungs are clear. Electronically Signed: Delvis Barone MD at 9:01 EST ,
[2022-03-23 10:12] VITALS: RESP 16
== END 2022-03-23 11:02 | disposition home or self-care (01) ==
PROVIDERS: Emergency Provider Emergency Medicine; PCP Family Medicine; Visit Provider Emergency Medicine
DX: R07.9 Chest pain, unspecified (principal); R42 Dizziness and giddiness; R51.9 Headache, unspecified; H93.19 Tinnitus, unspecified ear
CPT/HCPCS: 70450; 71046; 80048; 84484; 85025; 93005; 99283; A4216